=== PATIENT | female | born 1950 | race Caucasian/White ===

== ENCOUNTER 2016-11-16 12:39 | Emergency (ER) | payer MEDICARE, OTHER ==
[2016-11-16 12:46] VITALS: BP 150/80
--- NOTE | 2016-11-16 13:35 | XRAY Preliminary Report ---
Exam: XR Chest 2 View PA/LAT IMPRESSION: No acute abnormality of the chest. [facility] SITE ID: [id number]
--- NOTE | 2016-11-16 13:37 | XRAY Report ---
EXAM: CHEST RADIOGRAPHY EXAM DATE: 11/16/2016 12:51 PM. CLINICAL HISTORY: Asthma exacerbation, right upper back pain. COMPARISON: None. TECHNIQUE: 2 views. FINDINGS: Lungs/Pleura: No focal opacities evident. No pleural effusion. No pneumothorax. Normal volumes. Mediastinum: Heart and mediastinal contours are unremarkable. Other: None. IMPRESSION: No acute abnormality of the chest. [facility] Referring Provider Line: [phone] SITE ID: [id number]
[2016-11-16] MEDS ORDERED: DEXAMETHASONE 10 MG/ML VIAL PO STA (13:47)
--- NOTE | 2016-11-16 13:48 | ED Physician Documentation ---
PD HPI DYSPNEA - Stated complaint Stated Complaint: ASTHMA - Chief complaint Chief Complaint: Resp - History obtained from History obtained from: Patient - History of Present Illness Timing - onset: How many days ago (4) Timing - onset during: Rest Timing - duration: Days (4) Timing - details: Gradual onset, Still present Inciting event(s): URI, Allergic rxn/anaphylaxis Improved by: Inhaler/neb, Steroids Worsened by: Exertion, Coughing, Allergens Associated symptoms: Cough, Wheezing, Chest pain / discomfort. No: Palpitations , Diaphoresis, Bilateral edema, Unilateral edema Similar symptoms before: Diagnosis (asthma with pneumonia and OM) Recently seen: Clinic - Additional information Additional information: 66-year-old female with a history of asthma was seen about 4 weeks ago for an exacerbation of her asthma she was placed on a Z-Owen and a and a 5 day course of prednisone and had some improvement but did not feel like she completely resolved. She went on vacation and when she arrived back home from vacation she began to develop acute nasal congestion and allergy symptoms and she began back on her Flonase and Combivent. She has subsequently developed increasing shortness of breath and has had to use her Combivent inhaler 4-5 times per day and has now developed some pain in her chest as well similar to what she has had previously with exacerbation of asthma. Her pain is on the right side in the back. Review of Systems Constitutional: denies: Fever, Chills Eyes: denies: Decreased vision Ears: denies: Ear pain Nose: reports: Rhinorrhea / runny nose, Congestion Throat: denies: Sore throat Cardiac: reports: Chest pain / pressure. 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 - Present Medications Home Medications: Ambulatory Orders Medication Instructions Recorded Confirmed Lisinopril/Hydrochlorothiazide 1 each PO DAILY 12/20/12 11/16/16 [Lisinopril-Hctz 10-12.5 mg Tab] Cholecalciferol (Vitamin D3) 1 tab PO DAILY 04/11/15 11/16/16 [Vitamin D-3] Fluticasone 44 Mcg [Flovent] 1 inhaler IH BID 04/11/15 11/16/16 Ipratropium/Albuterol [Combivent 1 puffs IH QID 04/11/15 11/16/16 Respimat] Ondansetron HCl [Zofran] 1 tab PO Q6HR 04/11/15 11/16/16 Loratadine [Claritin] 10 mg ORAL DAILY 03/29/16 11/16/16 Amox/Clav 875/125 [Augmentin] 1 each PO Q12H #20 tablet 11/16/16 Mometasone Furoate [Nasonex] 1 spray PO DAILY 11/16/16 11/16/16 predniSONE [Deltasone] 10 mg PO DAILY #26 tablet 11/16/16 - Allergies Allergies/Adverse Reactions: Allergies Allergy/AdvReac Type Severity Reaction Status Date / Time povidone-iodine Allergy Intermediate Hives Verified 03/29/16 16:37 [From Betadine] soap * [From Betadine] Allergy Intermediate Hives Verified 03/29/16 16:37 Sulfa (Sulfonamide Allergy Intermediate Hives Verified 03/29/16 16:37 Antibiotics) Flu vaccine Allergy Mild Rash Uncoded 03/29/16 16:37 - Social History Does the pt smoke?: No Smoking Status: Never smoker Does the pt drink ETOH?: No Does the pt have substance abuse?: No - Immunizations Immunizations are current?: Yes Immunizations: TDAP >10years/unknown PD ED PE NORMAL - Vitals Vital signs reviewed: Yes (hypertensive ) - General General: No acute distress, Well developed/nourished - HEENT HEENT: Atraumatic, PERRL, EOMI, Other (both TM's are erythematous with distortion of the landmarks. ) - Neck Neck: Supple, no meningeal sign, No bony TTP - Cardiac Cardiac: RRR, No murmur - Respiratory Respiratory: No respiratory distress, Other (low pitched rhonchi on the right with fair air movement. ) - Abdomen Abdomen: Soft, Non tender - Back Back: No CVA TTP, No spinal TTP - Derm Derm: Normal color, No rash - Extremities Extremities: No deformity, No edema - Neuro Neuro: Alert and oriented X 3, No motor deficit, No sensory deficit, Normal speech - Psych Psych: Normal mood, Normal affect Results - Vitals Vitals: Vital Signs - 24 hr 11/16/16 12:43 Temperature 36.6 C Heart Rate 77 Respiratory 20 Rate Blood Pressure 150/80 H O2 Saturation 98 Oxygen O2 Source Room air - Rads (name of study) 2 view chest Radiology: Prelim report reviewed (IMPRESSION: No acute abnormality of the chest ), EMP read indepedently, See rad report PD MEDICAL DECISION MAKING - ED course Complexity details: reviewed old records, reviewed results, re-evaluated patient , considered differential, d/w patient ED course: 66-year-old female with a history of asthma does not have acute wheezing here in the emergency department she does have some chest wall pain and her chest x- ray is without evidence of infiltrate. She does have bilateral otitis media on examination of the TMs and here in the emergency department she is given a dose of dexamethasone and we will put her on some Augmentin as well as a 8 day course of prednisone and a rapid taper Departure - Departure Disposition: 01 Home, Self Care Clinical Impression: Asthma exacerbation Otitis media Qualifiers: Otitis media type: suppurative Laterality: bilateral Chronicity: acute Recurrence: not specified as recurrent Spontaneous tympanic membrane rupture: without spontaneous rupture Qualified Code(s): H66.003 - Acute suppurative otitis media without spontaneous rupture of ear drum, bilateral Condition: Stable Instructions: ED Reactive Airway Disease, ED Otitis Media Acute Adult Follow-Up: Melvin Coronel MD [Primary Care Provider] - Prescriptions: Amox/Clav 875/125 [Augmentin] 1 each PO Q12H #20 tablet predniSONE [Deltasone] 10 mg PO DAILY #26 tablet
[2016-11-16] MEDS ORDERED: CHERRY SYRUP 10 ML UDC PO ONE (13:50)
[2016-11-16] MEDS ORDERED: DEXAMETHASONE 10 MG/ML VIAL ONE (13:50)
== END 2016-11-16 14:10 | disposition home or self-care (01) ==
LOC: ED 12:39
DX: J45.901 Unspecified asthma with (acute) exacerbation (principal); H66.003 Acute suppurative otitis media without spontaneous rupture of ear drum, bilateral; I10 Essential (primary) hypertension; K21.9 Gastro-esophageal reflux disease without esophagitis
CPT/HCPCS: 71020; 99283; A9270

== ENCOUNTER 2018-03-13 16:46 | Emergency (ER) | payer MEDICARE, OTHER ==
[2018-03-13 17:41] LABS: BASOPHILS # (AUTO) 0.2 10^3/uL (0.0-0.1); BASOPHILS % (AUTO) 1.8 %; EOSINOPHILS # (AUTO) 0.2 10^3/uL (0.0-0.7); EOSINOPHILS % (AUTO) 2.3 %; HGB - HEMOGLOBIN 14.6 g/dL (12.0-16.0); LYMPHOCYTES # (AUTO) 3.9 10^3/uL (1.5-3.5); LYMPHOCYTES % (AUTO) 39.3 %; MEAN CORPUSCULAR HEMOGLOBIN 29.6 pg (27.0-31.0); MEAN CORPUSCULAR HGB CONC 33.4 g/dL (32.0-36.0); MEAN CORPUSCULAR VOLUME 88.5 fL (81.0-99.0); MEAN PLATELET VOLUME 7.7 fL (7.9-10.8); MONOCYTES # (AUTO) 0.9 10^3/uL (0.0-1.0); MONOCYTES % (AUTO) 8.5 %; NEUTROPHILS # (AUTO) 4.8 10^3/uL (1.5-6.6); NEUTROPHILS % (AUTO) 48.1 %; PLT - PLATELET COUNT 208 10^3/uL (130-450); RED BLOOD COUNT 4.94 10^6/uL (4.20-5.40); RED CELL DISTRIBUTION WIDTH 14.7 % (12.0-15.0); WHITE BLOOD COUNT 9.9 x10^3/uL (4.8-10.8)
--- NOTE | 2018-03-13 17:50 | XRAY Report ---
Reason: LUQ pain through to back Procedure Date: 03/13/2018 Accession Number: [id number] / [id number] Procedure: XR - Chest 1 View X-Ray CPT Code: 08779 FULL RESULT: EXAM: CHEST RADIOGRAPHY EXAM DATE: 03/13/2018 05:30 PM. CLINICAL HISTORY: LUQ pain through to back. COMPARISON: 11/16/2016. TECHNIQUE: 1 view. FINDINGS: Lungs/Pleura: No focal opacities evident. No pleural effusion. No pneumothorax. Mediastinum: Within exam limitations, the cardiomediastinal contour is normal. Other: None. IMPRESSION: Grossly clear. [facility]
[2018-03-13 17:55] LABS: ALBUMIN 4.3 g/dL (3.2-5.5); ALBUMIN/GLOBULIN RATIO 1.4 (1.0-2.2); BILIRUBIN,TOTAL 0.6 mg/dL (0.2-1.0); CALCIUM 9.5 mg/dL (8.5-10.3); CREATININE 0.9 mg/dL (0.4-1.0); TOTAL PROTEIN 7.3 g/dL (6.7-8.2)
[2018-03-13] MEDS ORDERED: SUCRALFATE 1 GM/10 ML UDC PO STA (18:16)
[2018-03-13] MEDS ORDERED: LIDOCAINE VISCOUS 2% 15 ML UDC MM STA (18:16)
[2018-03-13] MEDS ORDERED: FAMOTIDINE 20 MG TABLET PO STA (18:16)
--- NOTE | 2018-03-13 18:18 | ED Physician Documentation ---
PD HPI ABD PAIN - Stated complaint Stated Complaint: LUQ/BACK PX - Chief complaint Chief Complaint: Abd Pain - History obtained from History obtained from: Patient - History of Present Illness Timing - onset: How many weeks ago (1) Timing - duration: Weeks (1) Timing - details: Gradual onset Pain level max: 7 Pain level now: 4 Quality: Aching, Pain Location: LUQ Radiation: Other (mid back) Improved by: Other (nothing) Worsened by: Eating Associated symptoms: No: Fever, Hematemesis, Diarrhea, Constipation, Melena, Hematochezia, Dysuria, Hematuria Similar symptoms before: Has not had sx before Recently seen: Not recently seen Review of Systems Constitutional: denies: Fever, Chills : denies: Dysuria Skin: denies: Rash Musculoskeletal: denies: Neck pain, Back pain Neurologic: denies: Headache PD PAST MEDICAL HISTORY - Past Medical History Cardiovascular: Hypertension Respiratory: Asthma GI: GERD, Diverticulitis Musculoskeletal: Chronic back pain Derm: None - Past Surgical History Past Surgical History: Yes General: 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, 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, 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 - Present Medications Home Medications: Ambulatory Orders Medication Instructions Recorded Confirmed Lisinopril/Hydrochlorothiazide 1 each PO DAILY 12/20/12 11/16/16 [Lisinopril-Hctz 10-12.5 mg Tab] Cholecalciferol (Vitamin D3) 1 tab PO DAILY 04/11/15 11/16/16 [Vitamin D-3] Fluticasone 44 Mcg [Flovent] 1 inhaler IH BID 04/11/15 11/16/16 Ipratropium/Albuterol [Combivent 1 puffs IH QID 04/11/15 11/16/16 Respimat] Ondansetron HCl [Zofran] 1 tab PO Q6HR 04/11/15 11/16/16 Loratadine [Claritin] 10 mg ORAL DAILY 03/29/16 11/16/16 Azelastine HCl 03/13/18 03/13/18 Cyclobenzaprine [Flexeril] 03/13/18 Famotidine [Pepcid] 20 mg PO BID #60 tablet 03/13/18 Metoprolol Tartrate 03/13/18 Omeprazole 20 mg PO DAILY #30 tab. 03/13/18 Ondansetron Odt [Zofran] 4 mg TL Q6H PRN #10 tablet 03/13/18 Rivaroxaban [Xarelto] 03/13/18 - Allergies Allergies/Adverse Reactions: Allergies Allergy/AdvReac Type Severity Reaction Status Date / Time povidone-iodine Allergy Intermediate Hives Verified 03/13/18 17:02 [From Betadine] soap * [From Betadine] Allergy Intermediate Hives Verified 03/13/18 17:02 Sulfa (Sulfonamide Allergy Intermediate Hives Verified 03/13/18 17:02 Antibiotics) Flu vaccine Allergy Mild Rash Uncoded 03/13/18 17:02 - Social History Does the pt smoke?: No Smoking Status: Never smoker Does the pt drink ETOH?: No Does the pt have substance abuse?: No - Immunizations Immunizations are current?: Yes Immunizations: TDAP >10years/unknown PD ED PE NORMAL - Vitals Vital signs reviewed: Yes - General General: Alert and oriented X 3, No acute distress, Well developed/nourished - HEENT HEENT: PERRL, Moist mucous membranes - Neck Neck: Supple, no meningeal sign - Cardiac Cardiac: RRR, Strong equal pulses - Respiratory Respiratory: No respiratory distress, Clear bilaterally - Abdomen Abdomen: Soft, Non distended, Other (Mild tenderness palpation epigastric without peritoneal signs) - Back Back: No spinal TTP - Derm Derm: Warm and dry - Neuro Neuro: Alert and oriented X 3 - Psych Psych: Normal mood, Normal affect Results - Vitals Vitals: Vital Signs - 24 hr 03/13/18 03/13/18 16:59 18:52 Temperature 37.1 C 36.8 C Heart Rate 74 69 Respiratory 18 16 Rate Blood Pressure 146/72 H 135/62 H O2 Saturation 97 98 Oxygen O2 Source Room air - Labs Labs: Laboratory Tests 03/13/18 03/13/18 03/13/18 17:37 17:37 17:37 WBC 9.9 RBC 4.94 Hgb 14.6 Hct 43.7 MCV 88.5 MCH 29.6 MCHC 33.4 RDW 14.7 Plt Count 208 MPV 7.7 L Neut # (Auto) 4.8 Lymph # (Auto) 3.9 H [place] # (Auto) 0.9 Eos # (Auto) 0.2 Baso # (Auto) 0.2 H Absolute Nucleated RBC 0.01 Nucleated RBC % 0.1 Sodium 136 Potassium 4.2 Chloride 101 Carbon Dioxide 29 Anion Gap 6.0 BUN 12 Creatinine 0.9 Estimated GFR (MDRD) 62 L Glucose 93 Calcium 9.5 Total Bilirubin 0.6 AST 47 H ALT 74 H Alkaline Phosphatase 59 Troponin I < 0.04 Total Protein 7.3 Albumin 4.3 Globulin 3.0 Albumin/Globulin Ratio 1.4 Lipase 51 - Rads (name of study) cxr Radiology: Prelim report reviewed, EMP read contemporaneously, See rad report (normal) PD MEDICAL DECISION MAKING - ED course Complexity details: reviewed results, re-evaluated patient, considered differential, d/w patient ED course: Patient is a 67-year-old female with left upper quadrant abdominal pain. No significant abdominal tenderness on exam, does have mild epigastric tenderness. No acute laboratory findings to explain her pain. She feels better after GI cocktail. Will treat for gastritis. She is well-appearing, nontoxic. Tolerating p.o. without difficulty. Patient counseled regarding signs and symptoms for which I believe and urgent re-evaluation would be necessary. Patient with good understanding of and agreement to plan and is comfortable going home at this time This document was made in part using voice recognition software. While efforts are made to proofread this document, sound alike and grammatical errors may occur. Departure - Departure Disposition: 01 Home, Self Care Clinical Impression: Gastritis Qualifiers: Gastritis type: unspecified gastritis Chronicity: acute Gastritis bleeding: without bleeding Qualified Code(s): K29.00 - Acute gastritis without bleeding Condition: Good Instructions: ED PUD Vs Gastritis Follow-Up: BREA MARINA DO [Primary Care Provider] - Within 1 week Prescriptions: Famotidine [Pepcid] 20 mg PO BID #60 tablet Omeprazole 20 mg PO DAILY #30 tab.rap. Ondansetron Odt [Zofran] 4 mg TL Q6H PRN #10 tablet PRN Reason: Nausea / Vomiting Comments: Use the medications as prescribed. Return if you worsen. Follow-up with your doctor for further care. Discharge Date/Time: 03/13/18 19:22
[2018-03-13 18:52] VITALS: BP 135/62
== END 2018-03-13 19:22 | disposition home or self-care (01) ==
LOC: ED 16:46
DX: K29.00 Acute gastritis without bleeding (principal); I10 Essential (primary) hypertension
CPT/HCPCS: 36415; 71045; 80053; 83690; 84484; 85025; 93005; 99283; A9270

== ENCOUNTER 2018-10-21 19:23 | Emergency (ER) | payer MEDICARE, OTHER ==
[2018-10-21 19:53] LABS: BILIRUBIN,URINE NEGATIVE (NEGATIVE); GLUCOSE, URINE (UA) NEGATIVE (NEGATIVE); KETONES,URINE (UA) NEGATIVE (NEGATIVE); LEUKOCYTE ESTERASE, URINE NEGATIVE (NEGATIVE); NITRITE,URINE NEGATIVE (NEGATIVE); OCCULT BLOOD,URINE NEGATIVE (NEGATIVE); PROTEIN,URINE NEGATIVE (NEGATIVE); UROBILINOGEN,URINE 0.2 (NORMAL) E.U./dL (NORMAL)
[2018-10-21 19:54] LABS: CLARITY,URINE CLEAR (CLEAR)
[2018-10-21 20:11] LABS: BASOPHILS # (AUTO) 0.1 10^3/uL (0.0-0.1); BASOPHILS % (AUTO) 0.6 %; EOSINOPHILS # (AUTO) 0.2 10^3/uL (0.0-0.7); EOSINOPHILS % (AUTO) 1.5 %; HGB - HEMOGLOBIN 15.1 g/dL (12.0-16.0); LYMPHOCYTES # (AUTO) 3.7 10^3/uL (1.5-3.5); LYMPHOCYTES % (AUTO) 34.9 %; MEAN CORPUSCULAR HGB CONC 32.3 g/dL (32.0-36.0); MEAN CORPUSCULAR VOLUME 89.6 fL (81.0-99.0); MEAN PLATELET VOLUME 9.8 fL (7.9-10.8); MONOCYTES # (AUTO) 0.9 10^3/uL (0.0-1.0); MONOCYTES % (AUTO) 8.7 %; NEUTROPHILS # (AUTO) 5.7 10^3/uL (1.5-6.6); NEUTROPHILS % (AUTO) 53.6 %; PLT - PLATELET COUNT 208 10^3/uL (130-450); RED BLOOD COUNT 5.21 10^6/uL (4.20-5.40); RED CELL DISTRIBUTION WIDTH 13.8 % (12.0-15.0); WHITE BLOOD COUNT 10.6 x10^3/uL (4.8-10.8)
--- NOTE | 2018-10-21 20:14 | ED Physician Documentation ---
PD HPI ABD PAIN - Stated complaint Stated Complaint: ABD PX/NAUSEA - Chief complaint Chief Complaint: Abd Pain - History obtained from History obtained from: Patient - History of Present Illness Timing - onset: How many days ago (2) Timing - details: Gradual onset, Waxing and waning Pain level now: 9 Location: Suprapubic, LLQ Radiation: Other (no radiation) Improved by: Other (no ameliorating factors) Worsened by: Other (worse in proportion to how full her bladder is) Associated symptoms: Constipation. No: Fever, Nausea, Vomiting, Diarrhea Similar symptoms before: Has not had sx before Recently seen: Not recently seen - Additional information Additional information: c/o 2 days gradual onset and progressive lower abdominal pain. also feels constipated, no relief with miralax. Review of Systems Constitutional: denies: Fever, Chills, Sweats Cardiac: reports: Reviewed and negative Respiratory: reports: Reviewed and negative GI: reports: Abdominal Pain, Constipation. 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 - Present Medications Home Medications: Ambulatory Orders Medication Instructions Recorded Confirmed Lisinopril/Hydrochlorothiazide 1 each PO DAILY 12/20/12 11/16/16 [Lisinopril-Hctz 10-12.5 mg Tab] Cholecalciferol (Vitamin D3) 1 tab PO DAILY 04/11/15 11/16/16 [Vitamin D-3] Fluticasone 44 Mcg [Flovent] 1 inhaler IH BID 04/11/15 11/16/16 Ipratropium/Albuterol [Combivent 1 puffs IH QID 04/11/15 11/16/16 Respimat] Ondansetron HCl [Zofran] 1 tab PO Q6HR 04/11/15 11/16/16 Loratadine [Claritin] 10 mg ORAL DAILY 03/29/16 11/16/16 Azelastine HCl 03/13/18 03/13/18 Cyclobenzaprine [Flexeril] 03/13/18 Famotidine [Pepcid] 20 mg PO BID #60 tablet 03/13/18 Metoprolol Tartrate 03/13/18 Omeprazole 20 mg PO DAILY #30 tab 03/13/18 Ondansetron Odt [Zofran] 4 mg TL Q6H PRN #10 tablet 03/13/18 Rivaroxaban [Xarelto] 03/13/18 Amox/Clav 875/125 [Augmentin] 1 each PO Q12H #13 tablet 10/21/18 Hydrocodone/Acetaminophen 1 - 2 each PO Q6H PRN #14 tablet 10/21/18 [Hydrocodon-Acetaminophen 5-325] - Allergies Allergies/Adverse Reactions: Allergies Allergy/AdvReac Type Severity Reaction Status Date / Time povidone-iodine Allergy Intermediate Hives Verified 10/21/18 19:30 [From Betadine] soap * [From Betadine] Allergy Intermediate Hives Verified 10/21/18 19:30 Sulfa (Sulfonamide Allergy Intermediate Hives Verified 10/21/18 19:30 Antibiotics) Flu vaccine Allergy Mild Rash Uncoded 10/21/18 19:30 - Social History Does the pt smoke?: No Smoking Status: Never smoker Does the pt drink ETOH?: No Does the pt have substance abuse?: No - Immunizations Immunizations are current?: Yes Immunizations: TDAP >10years/unknown PD ED PE NORMAL - Vitals Vital signs reviewed: Yes - General General: Alert and oriented X 3, No acute distress, Well developed/nourished - HEENT HEENT: Moist mucous membranes - Cardiac Cardiac: RRR, No murmur - Respiratory Respiratory: No respiratory distress, Clear bilaterally - Abdomen Abdomen: Soft, Non distended, Other (mild tenderness LLQ and suprapubic region without guarding or rebound) - Back Back: No CVA TTP - Derm Derm: Normal color, Warm and dry, No rash - Extremities Extremities: No edema Results - Vitals Vitals: Vital Signs - 24 hr 10/21/18 10/21/18 19:26 22:28 Temperature 37 C 36.3 C L Heart Rate 99 83 Respiratory 17 18 Rate Blood Pressure 126/64 136/62 H O2 Saturation 96 95 Oxygen O2 Source Room air - Labs Labs: Laboratory Tests 10/21/18 10/21/18 10/21/18 19:35 19:35 19:35 WBC 10.6 RBC 5.21 Hgb 15.1 Hct 46.7 MCV 89.6 MCH 29.0 MCHC 32.3 RDW 13.8 Plt Count 208 MPV 9.8 Neut # (Auto) 5.7 Lymph # (Auto) 3.7 H [place] # (Auto) 0.9 Eos # (Auto) 0.2 Baso # (Auto) 0.1 Absolute Nucleated RBC 0.00 Nucleated RBC % 0.0 Sodium 136 Potassium 4.2 Chloride 100 L Carbon Dioxide 27 Anion Gap 9.0 BUN 11 Creatinine 1.0 Estimated GFR (MDRD) 55 L Glucose 111 H Calcium 9.8 Total Bilirubin 0.8 AST 41 ALT 55 Alkaline Phosphatase 48 Total Protein 7.9 Albumin 4.4 Globulin 3.5 Albumin/Globulin Ratio 1.3 Lipase 54 H Urine Color YELLOW Urine Clarity CLEAR Urine pH 7.0 Ur Specific [place] <=1.005 Urine Protein NEGATIVE Urine Glucose (UA) NEGATIVE Urine Ketones NEGATIVE Urine Occult Blood NEGATIVE Urine Nitrite NEGATIVE Urine Bilirubin NEGATIVE Urine Urobilinogen 0.2 (NORMAL) Ur Leukocyte Esterase NEGATIVE Ur Microscopic Review NOT INDICATED Urine Culture Comments NOT INDICATED - Rads (name of study) CT A/P Radiology: Prelim report reviewed, See rad report PD MEDICAL DECISION MAKING - ED course Complexity details: reviewed old records, reviewed results, re-evaluated patient, considered differential, d/w patient Departure - Departure Disposition: 01 Home, Self Care Clinical Impression: Diverticulitis Condition: Good Health Concerns: abdominal pain Plan of Treatment: antibiotics, follow up with primary care provider Care Goals: pain control, improvement/resolution of symptoms Assessment: see diagnosis Instructions: ED Diverticulitis Follow-Up: BREA MARINA DO [Primary Care Provider] - Prescriptions: Amox/Clav 875/125 [Augmentin] 1 each PO Q12H #13 tablet Hydrocodone/Acetaminophen [Hydrocodon-Acetaminophen 5-325] 1 - 2 each PO Q6H PRN #14 tablet PRN Reason: pain Forms: Activity restrictions Discharge Date/Time: 10/21/18 22:28
[2018-10-21 20:34] LABS: ALBUMIN 4.4 g/dL (3.2-5.5); ALBUMIN/GLOBULIN RATIO 1.3 (1.0-2.2); BILIRUBIN,TOTAL 0.8 mg/dL (0.2-1.0); CALCIUM 9.8 mg/dL (8.5-10.3); TOTAL PROTEIN 7.9 g/dL (6.7-8.2)
[2018-10-21] MEDS ORDERED: MORPHINE 2 MG/ML CARPUJECT IVP STA (20:38)
--- NOTE | 2018-10-21 21:25 | CT Report ---
Reason: lower abdominal pain Procedure Date: 10/21/2018 Accession Number: [id number] / [id number] Procedure: CT - Abdomen/Pelvis WO CPT Code: FULL RESULT: EXAM: CT ABDOMEN AND PELVIS EXAM DATE: 10/21/2018 08:58 PM. CLINICAL HISTORY: Lower abdominal pain. COMPARISONS: ABDOMEN/PELVIS W/O 01/29/2014 2:29 PM. TECHNIQUE: Routine helical CT imaging was performed through the abdomen and pelvis. IV contrast: . Enteric contrast: No. Reconstructions: Coronal and sagittal. In accordance with CT protocol optimization, one or more of the following dose reduction techniques were utilized for this exam: automated exposure control, adjustment of mA and/or KV based on patient size, or use of iterative reconstructive technique. FINDINGS: Lung Bases: Unremarkable. Small hiatal hernia Liver: Fatty infiltrated Gallbladder/Bile Ducts: Post cholecystectomy Spleen: Normal. Pancreas: Normal. Adrenal Glands: Normal. Kidneys: Right kidney extrarenal pelvis. Possible distal right ureteral 2 mm calcification at L5. Left kidney extrarenal pelvis Peritoneal Cavity/Bowel: Diverticulosis There may be some mild perisigmoid stranding. No retroperitoneal adenopathy. Appendix not identified but no pericecal inflammatory changes Pelvic Organs: Calcification within or adjacent to the left ovary stable.. The bladder and visualized pelvic organs are otherwise within normal limits. Vasculature: Atherosclerotic changes Bones: DJD spine Other: None. IMPRESSION: 1. Possibly mild sigmoid diverticulitis. 2. Possible distal right ureteral 2 mm calcification without hydronephrosis. 3. Fatty infiltrated liver. [facility]
[2018-10-21] MEDS ORDERED: HYDROcod/ACET 5/325 Prepack 4 PO STA (22:11)
[2018-10-21] MEDS ORDERED: AMOX/CLAV 875 MG/125 MG TABLET PO STA (22:11)
[2018-10-21 22:28] VITALS: BP 136/62
== END 2018-10-21 22:28 | disposition home or self-care (01) ==
LOC: ED 19:23
DX: K57.32 Diverticulitis of large intestine without perforation or abscess without bleeding (principal); K59.00 Constipation, unspecified; K21.9 Gastro-esophageal reflux disease without esophagitis; I10 Essential (primary) hypertension; Z79.899 Other long term (current) drug therapy
CPT/HCPCS: 36415; 74176; 80053; 81003; 83690; 85025; 96374; 99283; 99284; A9270; 81001; 87086

== ENCOUNTER 2018-10-24 11:29 | Emergency (ER) | payer MEDICARE, OTHER ==
[2018-10-24] MEDS ORDERED: LIDOCAINE-MPF 2% 7 ML in SODIUM CHLORIDE 0.9% 50 ML IV STA (12:22)
[2018-10-24] MEDS ORDERED: PROMETHAZINE INJ 25 MG in SODIUM CHLORIDE 0.9% 50 ML IV STA (12:23)
[2018-10-24 12:25] LABS: BASOPHILS # (AUTO) 0.1 10^3/uL (0.0-0.1); BASOPHILS % (AUTO) 0.6 %; EOSINOPHILS # (AUTO) 0.2 10^3/uL (0.0-0.7); EOSINOPHILS % (AUTO) 1.3 %; HGB - HEMOGLOBIN 15.4 g/dL (12.0-16.0); LYMPHOCYTES # (AUTO) 3.3 10^3/uL (1.5-3.5); LYMPHOCYTES % (AUTO) 24.4 %; MEAN CORPUSCULAR HEMOGLOBIN 28.7 pg (27.0-31.0); MEAN CORPUSCULAR HGB CONC 32.4 g/dL (32.0-36.0); MEAN CORPUSCULAR VOLUME 88.6 fL (81.0-99.0); MEAN PLATELET VOLUME 10.4 fL (7.9-10.8); MONOCYTES % (AUTO) 7.6 %; NEUTROPHILS # (AUTO) 8.7 10^3/uL (1.5-6.6); NEUTROPHILS % (AUTO) 65.4 %; PLT - PLATELET COUNT 229 10^3/uL (130-450); RED BLOOD COUNT 5.37 10^6/uL (4.20-5.40); RED CELL DISTRIBUTION WIDTH 13.4 % (12.0-15.0); WHITE BLOOD COUNT 13.4 x10^3/uL (4.8-10.8)
[2018-10-24 12:27] LABS: BILIRUBIN,URINE NEGATIVE (NEGATIVE); GLUCOSE, URINE (UA) NEGATIVE (NEGATIVE); KETONES,URINE (UA) NEGATIVE (NEGATIVE); LEUKOCYTE ESTERASE, URINE NEGATIVE (NEGATIVE); NITRITE,URINE NEGATIVE (NEGATIVE); OCCULT BLOOD,URINE NEGATIVE (NEGATIVE); PROTEIN,URINE NEGATIVE (NEGATIVE); UROBILINOGEN,URINE 0.2 (NORMAL) E.U./dL (NORMAL)
[2018-10-24 12:29] LABS: CLARITY,URINE CLEAR (CLEAR)
[2018-10-24 12:38] LABS: ALBUMIN 4.3 g/dL (3.2-5.5); ALBUMIN/GLOBULIN RATIO 1.1 (1.0-2.2); BILIRUBIN,TOTAL 0.6 mg/dL (0.2-1.0); CALCIUM 9.5 mg/dL (8.5-10.3); CREATININE 0.9 mg/dL (0.4-1.0); TOTAL PROTEIN 8.1 g/dL (6.7-8.2)
[2018-10-24] MEDS ORDERED: oxyCODONE 5 MG TABLET PO STA (13:35)
[2018-10-24] MEDS ORDERED: AMPICILLIN/SULBACTAM 3 GM in SODIUM CHLORIDE 0.9% MINIBAG 100 ML IV STA (13:36)
--- NOTE | 2018-10-24 13:39 | ED Physician Documentation ---
History of Present Illness - Stated complaint Stated Complaint: ABD PX - Chief complaint Chief Complaint: Abd Pain - History obtained from History obtained from: Patient, Family - History of Present Illness Timing: How many days ago (4) Pain level max: 5 Pain level now: 3 - Additonal information Additional information: 68-year-old female recently seen here and diagnosed with a possible right-sided ureteral stone as well as mild sigmoid diverticulitis. She states that she is having increasing pain. No fevers. Some nausea but no vomiting. She states she has chronic nausea that is currently unchanged. She did not take anything for pain today. She did take 2 Vicodin over the course of the entire day ye . Worse with movement and better with rest. 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: Tubal ligation, 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 - Present Medications Home Medications: Ambulatory Orders Medication Instructions Recorded Confirmed Lisinopril/Hydrochlorothiazide 1 each PO DAILY 12/20/12 11/16/16 [Lisinopril-Hctz 10-12.5 mg Tab] Cholecalciferol (Vitamin D3) 1 tab PO DAILY 04/11/15 11/16/16 [Vitamin D-3] Fluticasone 44 Mcg [Flovent] 1 inhaler IH BID 04/11/15 11/16/16 Ipratropium/Albuterol [Combivent 1 puffs IH QID 04/11/15 11/16/16 Respimat] Ondansetron HCl [Zofran] 1 tab PO Q6HR 04/11/15 11/16/16 Loratadine [Claritin] 10 mg ORAL DAILY 03/29/16 11/16/16 Azelastine HCl 03/13/18 03/13/18 Cyclobenzaprine [Flexeril] 03/13/18 Famotidine [Pepcid] 20 mg PO BID #60 tablet 03/13/18 Metoprolol Tartrate 03/13/18 Omeprazole 20 mg PO DAILY #30 tab 03/13/18 Ondansetron Odt [Zofran] 4 mg TL Q6H PRN #10 tablet 03/13/18 Rivaroxaban [Xarelto] 03/13/18 Amox/Clav 875/125 [Augmentin] 1 each PO Q12H #13 tablet 10/21/18 Hydrocodone/Acetaminophen 1 - 2 each PO Q6H PRN #14 tablet 10/21/18 [Hydrocodon-Acetaminophen 5-325] Amox/Clav 875/125 [Augmentin] 1 each PO Q8H #30 tablet 10/24/18 Oxycodone HCl/Acetaminophen 1 - 2 each PO Q6H PRN #14 tablet 10/24/18 [Percocet 5-325 mg Tablet] Promethazine [Phenergan] 25 mg PO Q6H PRN #10 tab 10/24/18 - Allergies Allergies/Adverse Reactions: Allergies Allergy/AdvReac Type Severity Reaction Status Date / Time povidone-iodine Allergy Intermediate Hives Verified 10/21/18 19:30 [From Betadine] soap * [From Betadine] Allergy Intermediate Hives Verified 10/21/18 19:30 Sulfa (Sulfonamide Allergy Intermediate Hives Verified 10/21/18 19:30 Antibiotics) Flu vaccine Allergy Mild Rash Uncoded 10/21/18 19:30 - Social History Does the pt smoke?: No Smoking Status: Never smoker Does the pt drink ETOH?: No Does the pt have substance abuse?: No - Immunizations Immunizations are current?: Yes Immunizations: TDAP >10years/unknown PD ED PE NORMAL - Vitals Vital signs reviewed: Yes - General General: Alert and oriented X 3, No acute distress, Well developed/nourished - HEENT HEENT: Moist mucous membranes - Neck Neck: Supple, no meningeal sign - Cardiac Cardiac: RRR, No murmur - Respiratory Respiratory: No respiratory distress, Clear bilaterally - Abdomen Abdomen: Soft, Non distended, Other (Tender to palpation suprapubic and left lower quadrant. No peritoneal signs) - Back Back: No CVA TTP - Derm Derm: Warm and dry - Extremities Extremities: No edema, No calf tenderness / cord - Neuro Neuro: Alert and oriented X 3 - Psych Psych: Normal mood, Normal affect Results - Vitals Vitals: Vital Signs - 24 hr 10/24/18 10/24/18 10/24/18 11:36 13:14 14:33 Temperature 37.0 C Heart Rate 88 81 79 Respiratory 16 16 16 Rate Blood Pressure 140/63 H 131/60 H 122/57 L O2 Saturation 97 94 93 Oxygen O2 Source Room air - Labs Labs: Laboratory Tests 10/24/18 10/24/18 10/24/18 12:20 12:20 12:20 WBC 13.4 H RBC 5.37 Hgb 15.4 Hct 47.6 H MCV 88.6 MCH 28.7 MCHC 32.4 RDW 13.4 Plt Count 229 MPV 10.4 Neut # (Auto) 8.7 H Lymph # (Auto) 3.3 [place] # (Auto) 1.0 Eos # (Auto) 0.2 Baso # (Auto) 0.1 Absolute Nucleated RBC 0.00 Nucleated RBC % 0.0 Sodium 132 L Potassium 4.1 Chloride 98 L Carbon Dioxide 23 Anion Gap 11.0 BUN 10 Creatinine 0.9 Estimated GFR (MDRD) 62 L Glucose 109 H Calcium 9.5 Total Bilirubin 0.6 AST 50 H ALT 83 H Alkaline Phosphatase 64 Total Protein 8.1 Albumin 4.3 Globulin 3.8 Albumin/Globulin Ratio 1.1 Lipase 61 H Urine Color YELLOW Urine Clarity CLEAR Urine pH 6.0 Ur Specific [place] 1.010 Urine Protein NEGATIVE Urine Glucose (UA) NEGATIVE Urine Ketones NEGATIVE Urine Occult Blood NEGATIVE Urine Nitrite NEGATIVE Urine Bilirubin NEGATIVE Urine Urobilinogen 0.2 (NORMAL) Ur Leukocyte Esterase NEGATIVE Ur Microscopic Review NOT INDICATED Urine Culture Comments NOT INDICATED PD MEDICAL DECISION MAKING - ED course Complexity details: reviewed old records, reviewed results, re-evaluated pacheco mcnair, considered differential, d/w patient, d/w family ED course: CT scan 3 days ago showed mild sigmoid diverticulitis and possible 2 mm ureteral stone. Pain is well controlled here. Mild increase in her leukocytosis, but no peritoneal signs on exam. Will not repeat CT today. We will increase her Augmentin 2-3 times a day. She will return if she worsens including fevers, worsening abdominal pain or failure to improve in the next 24 to 48 hours. Patient counseled regarding signs and symptoms for which I believe and urgent re-evaluation would be necessary. Patient with good understanding of and agreement to plan and is comfortable going home at this time This document was made in part using voice recognition software. While efforts are made to proofread this document, sound alike and grammatical errors may occur. Departure - Departure Disposition: 01 Home, Self Care Clinical Impression: Diverticulitis Condition: Good Instructions: ED Diverticulitis Follow-Up: BREA MARINA DO [Primary Care Provider] - Within 3 Days Prescriptions: Amox/Clav 875/125 [Augmentin] 1 each PO Q8H #30 tablet Oxycodone HCl/Acetaminophen [Percocet 5-325 mg Tablet] 1 - 2 each PO Q6H PRN #14 tablet PRN Reason: pain Promethazine [Phenergan] 25 mg PO Q6H PRN #10 tab PRN Reason: Nausea / Vomiting Comments: We will increased the augmentin to 3x per day and change your pain medication. Return if you worsen. Forms: Activity restrictions Discharge Date/Time: 10/24/18 14:48
[2018-10-24] MEDS ORDERED: AMPICILLIN/SULBACTAM 3 GM in SODIUM CHLORIDE 0.9% MINIBAG 100 ML IV SCH (14:00)
[2018-10-24 14:34] VITALS: BP 122/57
== END 2018-10-24 14:48 | disposition home or self-care (01) ==
LOC: ED 11:29
DX: K57.32 Diverticulitis of large intestine without perforation or abscess without bleeding (principal); Z87.442 Personal history of urinary calculi; I10 Essential (primary) hypertension; Z79.01 Long term (current) use of anticoagulants
CPT/HCPCS: 36415; 80053; 81003; 83690; 85025; 96365; 96367; 96368; 99283; 99284; A9270; J7040; 81001; 87086

== ENCOUNTER 2018-10-28 21:30 | Outpatient (CLI) | payer MEDICARE, OTHER | END 2018-10-28 21:31 | disposition critical access hospital (66) | LOC: EMS 21:30 | PROVIDERS: ATTEND Surgery | DX: R00.0 Tachycardia, unspecified (principal) | CPT/HCPCS: A0425; A0427 ==

== ENCOUNTER 2018-10-28 21:48 | Emergency (ER) | payer MEDICARE, OTHER ==
--- NOTE | 2018-10-28 21:59 | ED Physician Documentation ---
PD HPI CHEST PAIN - Stated complaint Stated Complaint: CP/SVT - Chief complaint Chief Complaint: Cardiac - History obtained from History obtained from: Patient - History of Present Illness Timing - onset: Enter time (20:30) Timing - onset during: Rest Timing - duration: Minutes Timing - details: Abrupt onset, Constant, Still present in ED (improved after adenosine given by medics) Pain level max: 0 Pain level now: 0 Quality: Pain Location: Substernal Radiation: No: Jaw, Neck, Back, Abdominal, Left upper extremity, Right upper extremity Improved by: Nothing Worsened by: Exertion Associated symptoms: Diaphoresis Recently seen: Not recently seen - Additional information Additional information: patient complains of sudden onset rapid palpitations with diaphoresis and bilateral upper extremity pain at 8:30 tonight while seated at home. Medics arri tonio and found patient to be tachycardic with heart rate of 220s to 240s. Medics administered IV adenosine for SVT, and patient reportedly converted to normal sinus rhythm. En route to ED, patient went into rapid a fib Review of Systems Constitutional: reports: Reviewed and negative Cardiac: reports: Chest pain / pressure (resolved after adenosine en route), Palpitations. 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 - Present Medications Home Medications: Ambulatory Orders Medication Instructions Recorded Confirmed Lisinopril/Hydrochlorothiazide 1 each PO DAILY 12/20/12 11/16/16 [Lisinopril-Hctz 10-12.5 mg Tab] Cholecalciferol (Vitamin D3) 1 tab PO DAILY 04/11/15 11/16/16 [Vitamin D-3] Fluticasone 44 Mcg [Flovent] 1 inhaler IH BID 04/11/15 11/16/16 Ipratropium/Albuterol [Combivent 1 puffs IH QID 04/11/15 11/16/16 Respimat] Ondansetron HCl [Zofran] 1 tab PO Q6HR 04/11/15 11/16/16 Loratadine [Claritin] 10 mg ORAL DAILY 03/29/16 11/16/16 Azelastine HCl 03/13/18 03/13/18 Cyclobenzaprine [Flexeril] 03/13/18 Famotidine [Pepcid] 20 mg PO BID #60 tablet 03/13/18 Metoprolol Tartrate 03/13/18 Omeprazole 20 mg PO DAILY #30 tab 03/13/18 Ondansetron Odt [Zofran] 4 mg TL Q6H PRN #10 tablet 03/13/18 Rivaroxaban [Xarelto] 03/13/18 Amox/Clav 875/125 [Augmentin] 1 each PO Q12H #13 tablet 10/21/18 Hydrocodone/Acetaminophen 1 - 2 each PO Q6H PRN #14 tablet 10/21/18 [Hydrocodon-Acetaminophen 5-325] Amox/Clav 875/125 [Augmentin] 1 each PO Q8H #30 tablet 10/24/18 Oxycodone HCl/Acetaminophen 1 - 2 each PO Q6H PRN #14 tablet 10/24/18 [Percocet 5-325 mg Tablet] Promethazine [Phenergan] 25 mg PO Q6H PRN #10 tab 10/24/18 - Allergies Allergies/Adverse Reactions: Allergies Allergy/AdvReac Type Severity Reaction Status Date / Time povidone-iodine Allergy Intermediate Hives Verified 10/28/18 21:57 [From Betadine] soap * [From Betadine] Allergy Intermediate Hives Verified 10/28/18 21:57 Sulfa (Sulfonamide Allergy Intermediate Hives Verified 10/28/18 21:57 Antibiotics) ciprofloxacin [From Cipro] AdvReac Rash Verified 10/28/18 21:57 metronidazole [From Flagyl] AdvReac Rash Verified 10/28/18 21:57 Flu vaccine Allergy Mild Rash Uncoded 10/28/18 21:57 - Social History Does the pt smoke?: No Smoking Status: Never smoker Does the pt drink ETOH?: No Does the pt have substance abuse?: No - Immunizations Immunizations are current?: Yes Immunizations: TDAP >10years/unknown PD ED PE NORMAL - Vitals Vital signs reviewed: Yes - General General: Alert and oriented X 3, No acute distress, Well developed/nourished - HEENT HEENT: Moist mucous membranes - Neck Neck: Thyroid normal - Cardiac Cardiac: No murmur, No gallop, No rub - Respiratory Respiratory: No respiratory distress, Clear bilaterally - Abdomen Abdomen: Soft, Non tender - Derm Derm: Normal color, Warm and dry - Extremities Extremities: No edema PD ED PE EXPANDED - Cardiac Cardiac: Tachy, Irregularly irregular Results - Vitals Vitals: Oxygen O2 Source Room air - EKG (time done) No standard instances Rate: Rate (enter#) (147), Tachy Rhythm: Atrial fibrillation [place]: LAD Ischemia: Normal ST segments, Q waves (III, aVF) #2 Rate: Rate (enter#) (92) Rhythm: NSR [place]: LAD Intervals: Normal VT QRS: Normal Ischemia: Normal ST segments, Q waves (III, aVF) - Labs Labs: Laboratory Tests 10/28/18 10/28/18 10/28/18 23:06 23:06 23:06 WBC 9.5 RBC 4.55 Hgb 13.4 Hct 39.5 MCV 86.8 MCH 29.5 MCHC 33.9 RDW 13.4 Plt Count 209 MPV 10.1 Neut # (Auto) 5.0 Lymph # (Auto) 3.2 [place] # (Auto) 0.9 Eos # (Auto) 0.3 Baso # (Auto) 0.0 Absolute Nucleated RBC 0.00 Nucleated RBC % 0.0 Sodium 137 Potassium 3.0 L Chloride 106 Carbon Dioxide 23 Anion Gap 8.0 BUN 10 Creatinine 0.7 Estimated GFR (MDRD) 83 L Glucose 131 H Calcium 9.0 Total Bilirubin 0.5 AST 46 H ALT 55 Alkaline Phosphatase 48 Troponin I 0.12 Total Protein 7.0 Albumin 3.6 Globulin 3.4 Albumin/Globulin Ratio 1.1 Lipase 79 H 10/29/18 02:25 WBC RBC Hgb Hct MCV MCH MCHC RDW Plt Count MPV Neut # (Auto) Lymph # (Auto) [place] # (Auto) Eos # (Auto) Baso # (Auto) Absolute Nucleated RBC Nucleated RBC % Sodium Potassium Chloride Carbon Dioxide Anion Gap BUN Creatinine Estimated GFR (MDRD) Glucose Calcium Total Bilirubin AST ALT Alkaline Phosphatase Troponin I 0.13 Total Protein Albumin Globulin Albumin/Globulin Ratio Lipase PD MEDICAL DECISION MAKING - ED course Complexity details: reviewed old records, reviewed results, re-evaluated pat ient, considered differential, d/w patient ED course: reportedly SVT in field and converter to NSR with adenosine, then LUZ MARINA en route to ED. IV cardizem ordered, but just before administration if this medication, patient converted to NSR and remained in NSR, and asymptomatic, during remainder of ED stay. Departure - Departure Disposition: 01 Home, Self Care Clinical Impression: Chest pain Qualifiers: Chest pain type: unspecified Qualified Code(s): R07.9 - Chest pain, unspecified Atrial fibrillation Qualifiers: Atrial fibrillation type: paroxysmal Qualified Code(s): I48.0 - Paroxysmal atrial fibrillation Condition: Good Health Concerns: chest pain, palpitations Plan of Treatment: follow up with payroll human resources assistant Care Goals: prevention of symptom recurrence Assessment: see diagnoses Instructions: ED Afib, ED Chest Pain Atypical Unkn Cause, ED Tachycardia Pat PSVT Comments: Follow up with your payroll human resources assistant, next available appointment Discharge Date/Time: 10/29/18 03:26
[2018-10-28] MEDS ORDERED: diltiaZEM INJ 5 MG/ML VIAL IVP STA (22:38)
[2018-10-28] MEDS ORDERED: diltiaZEM INJ 5 MG/ML VIAL ONE (23:06)
[2018-10-28 23:15] LABS: BASOPHILS % (AUTO) 0.4 %; EOSINOPHILS # (AUTO) 0.3 10^3/uL (0.0-0.7); EOSINOPHILS % (AUTO) 3.2 %; HGB - HEMOGLOBIN 13.4 g/dL (12.0-16.0); LYMPHOCYTES # (AUTO) 3.2 10^3/uL (1.5-3.5); LYMPHOCYTES % (AUTO) 34.2 %; MEAN CORPUSCULAR HEMOGLOBIN 29.5 pg (27.0-31.0); MEAN CORPUSCULAR HGB CONC 33.9 g/dL (32.0-36.0); MEAN CORPUSCULAR VOLUME 86.8 fL (81.0-99.0); MEAN PLATELET VOLUME 10.1 fL (7.9-10.8); MONOCYTES # (AUTO) 0.9 10^3/uL (0.0-1.0); MONOCYTES % (AUTO) 9.1 %; NEUTROPHILS % (AUTO) 52.6 %; PLT - PLATELET COUNT 209 10^3/uL (130-450); RED BLOOD COUNT 4.55 10^6/uL (4.20-5.40); RED CELL DISTRIBUTION WIDTH 13.4 % (12.0-15.0); WHITE BLOOD COUNT 9.5 x10^3/uL (4.8-10.8)
[2018-10-28 23:29] LABS: ALBUMIN 3.6 g/dL (3.2-5.5); ALBUMIN/GLOBULIN RATIO 1.1 (1.0-2.2); BILIRUBIN,TOTAL 0.5 mg/dL (0.2-1.0); CREATININE 0.7 mg/dL (0.4-1.0)
[2018-10-28] MEDS ORDERED: POTASSIUM CHLORIDE 20 MEQ TABLET PO STA (23:33)
[2018-10-29 03:20] VITALS: BP 123/41
== END 2018-10-29 03:26 | disposition home or self-care (01) ==
LOC: EDUNIT# → ED 21:48
DX: I48.91 Unspecified atrial fibrillation (principal); R07.9 Chest pain, unspecified; I10 Essential (primary) hypertension; K21.9 Gastro-esophageal reflux disease without esophagitis
CPT/HCPCS: 80053; 83690; 84484; 85025; 93005; 99284; A9270

== ENCOUNTER 2018-11-12 19:11 | Observation (INO) | payer MEDICARE, OTHER ==
[2018-11-12 19:31] LABS: BILIRUBIN,URINE NEGATIVE (NEGATIVE); GLUCOSE, URINE (UA) NEGATIVE (NEGATIVE); KETONES,URINE (UA) NEGATIVE (NEGATIVE); LEUKOCYTE ESTERASE, URINE NEGATIVE (NEGATIVE); NITRITE,URINE NEGATIVE (NEGATIVE); OCCULT BLOOD,URINE NEGATIVE (NEGATIVE); PH,URINE 6.5 PH (5.0-7.5); PROTEIN,URINE NEGATIVE (NEGATIVE); UROBILINOGEN,URINE 0.2 (NORMAL) E.U./dL (NORMAL)
[2018-11-12 19:34] LABS: CLARITY,URINE CLEAR (CLEAR)
[2018-11-12 19:49] LABS: BASOPHILS % (AUTO) 0.4 %; EOSINOPHILS # (AUTO) 0.2 10^3/uL (0.0-0.7); EOSINOPHILS % (AUTO) 2.4 %; HGB - HEMOGLOBIN 13.9 g/dL (12.0-16.0); LYMPHOCYTES # (AUTO) 3.6 10^3/uL (1.5-3.5); LYMPHOCYTES % (AUTO) 36.8 %; MEAN CORPUSCULAR HEMOGLOBIN 29.1 pg (27.0-31.0); MEAN CORPUSCULAR HGB CONC 32.9 g/dL (32.0-36.0); MEAN CORPUSCULAR VOLUME 88.7 fL (81.0-99.0); MEAN PLATELET VOLUME 10.1 fL (7.9-10.8); MONOCYTES # (AUTO) 0.8 10^3/uL (0.0-1.0); MONOCYTES % (AUTO) 8.3 %; NEUTROPHILS % (AUTO) 51.8 %; PLT - PLATELET COUNT 191 10^3/uL (130-450); RED BLOOD COUNT 4.77 10^6/uL (4.20-5.40); WHITE BLOOD COUNT 9.7 x10^3/uL (4.8-10.8)
[2018-11-12 19:59] LABS: ALBUMIN/GLOBULIN RATIO 1.3 (1.0-2.2); BILIRUBIN,TOTAL 0.9 mg/dL (0.2-1.0); CALCIUM 9.4 mg/dL (8.5-10.3); CREATININE 0.8 mg/dL (0.4-1.0); TOTAL PROTEIN 7.1 g/dL (6.7-8.2)
--- NOTE | 2018-11-12 20:00 | ED Physician Documentation ---
PD HPI ABD PAIN - Stated complaint Stated Complaint: ABD PX/FEVER/NAUSEA - Chief complaint Chief Complaint: Abd Pain - History obtained from History obtained from: Patient - History of Present Illness Timing - onset: How many weeks ago Timing - duration: Weeks Timing - details: Gradual onset Quality: Other ("Like her bladder is full") Location: Periumbilical, RLQ, LLQ Radiation: No: Lower back Improved by: Other (Nothing) Worsened by: Other (Nothing) Associated symptoms: Fever (99.8), Nausea, Vomiting (None in the past 24 hours). No: Constipation, Melena, Hematochezia, Dysuria, Hematuria, Chest pain, Near syncope / syncope Similar symptoms before: Diagnosis (Diverticulitis) Recently seen: Emergency Dept - Additional information Additional information: This is a 68-year-old woman who presents with complaints that she has had pain in her lower abdomen since 21 October when she was seen here in the emergency department. They did a CT scan and told her she had a kidney stone and some mild diverticulitis. She was placed on an antibiotic but had to return 3 days later because the pain medicine was not helping the pain. She was changed to a different pain medication and increased on the dose of the Augmentin she was taking. She says the pain has never completely gone away but over this past week it has been increasing and she took her last dose of the Augmentin on Thursday. She describes the pain as like having a "full bladder". Then she will get surges of pain as well. She is also had some intermittent rectal pain. She took 2 Fleet suppositories yesterday thinking that she might be constipated even though she did not feel constipated and did have a bowel movement. She has not seen blood in the stool. She has nausea and chronic intermittent vomiting in the mornings. She has not vomited today. Patient has been worked up with colonoscopy 2 years ago that showed some diverticuli. She has had multiple abdominal surgeries including Appendectomy, cholecystectomy, hysterectomy, has been of a bladder sling and an abdominoplasty. Patient did take Motrin last night and this morning. She does not take the oxycodone that she was prescribed because she cannot take it at work or within 11 hours of having to go to work. She did work today. She reports low-grade fever at 99.8. No dysuria or hematuria. Patient has been short of breath but that is chronic issue related to asthma. Review of Systems Constitutional: reports: Fever Cardiac: reports: Palpitations (Recently seen in the emergency department with SVT). denies: Chest pain / pressure, Pedal edema Respiratory: reports: Dyspnea. denies: Cough GI: reports: Abdominal Pain, Nausea, Vomiting : reports: 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. 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[employer] LVN: Tubal ligation, 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 - Present Medications Home Medications: Ambulatory Orders Medication Instructions Recorded Confirmed Lisinopril/Hydrochlorothiazide 1 each PO DAILY 12/20/12 11/16/16 [Lisinopril-Hctz 10-12.5 mg Tab] Cholecalciferol (Vitamin D3) 1 tab PO DAILY 04/11/15 11/16/16 [Vitamin D-3] Fluticasone 44 Mcg [Flovent] 1 inhaler IH BID 04/11/15 11/16/16 Ipratropium/Albuterol [Combivent 1 puffs IH QID 04/11/15 11/16/16 Respimat] Ondansetron HCl [Zofran] 1 tab PO Q6HR 04/11/15 11/16/16 Loratadine [Claritin] 10 mg ORAL DAILY 03/29/16 11/16/16 Azelastine HCl 03/13/18 03/13/18 Cyclobenzaprine [Flexeril] 03/13/18 Famotidine [Pepcid] 20 mg PO BID #60 tablet 03/13/18 Metoprolol Tartrate 03/13/18 Omeprazole 20 mg PO DAILY #30 tab. 03/13/18 Ondansetron Odt [Zofran] 4 mg TL Q6H PRN #10 tablet 03/13/18 Rivaroxaban [Xarelto] 03/13/18 Amox/Clav 875/125 [Augmentin] 1 each PO Q12H #13 tablet 10/21/18 Hydrocodone/Acetaminophen 1 - 2 each PO Q6H PRN #14 tablet 10/21/18 [Hydrocodon-Acetaminophen 5-325] Amox/Clav 875/125 [Augmentin] 1 each PO Q8H #30 tablet 10/24/18 Oxycodone HCl/Acetaminophen 1 - 2 each PO Q6H PRN #14 tablet 10/24/18 [Percocet 5-325 mg Tablet] Promethazine [Phenergan] 25 mg PO Q6H PRN #10 tab 10/24/18 - Allergies Allergies/Adverse Reactions: Allergies Allergy/AdvReac Type Severity Reaction Status Date / Time povidone-iodine Allergy Intermediate Hives Verified 11/12/18 19:15 [From Betadine] soap * [From Betadine] Allergy Intermediate Hives Verified 11/12/18 19:15 Sulfa (Sulfonamide Allergy Intermediate Hives Verified 11/12/18 19:15 Antibiotics) ciprofloxacin [From Cipro] AdvReac Rash Verified 11/12/18 19:15 metronidazole [From Flagyl] AdvReac Rash Verified 11/12/18 19:15 Flu vaccine Allergy Mild Rash Uncoded 11/12/18 19:15 - Social History Does the pt smoke?: No Smoking Status: Never smoker Does the pt drink ETOH?: No Does the pt have substance abuse?: No - Immunizations Immunizations are current?: Yes Immunizations: TDAP >10years/unknown - POLST Patient has POLST: No PD ED PE NORMAL - Vitals Vital signs reviewed: Yes - General General: Alert and oriented X 3, No acute distress, Well developed/nourished, Other (Obese. 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, No motor deficit, No sensory deficit, Normal speech - Psych Psych: Normal mood, Normal affect Results - Vitals Vitals: Vital Signs - 24 hr 11/12/18 11/12/18 11/12/18 19:15 19:56 21:12 Temperature 36.0 C L 36.7 C Heart Rate 105 H 74 78 Respiratory 20 18 18 Rate Blood Pressure 148/69 H 143/55 H 146/70 H O2 Saturation 96 97 93 11/12/18 11/12/18 22:20 23:54 Temperature 36.0 C L Heart Rate 86 Respiratory 22 Rate Blood Pressure 134/46 H O2 Saturation 96 Oxygen O2 Source Room air - Labs Labs: Laboratory Tests 11/12/18 11/12/18 11/12/18 19:19 19:42 19:42 WBC 9.7 RBC 4.77 Hgb 13.9 Hct 42.3 MCV 88.7 MCH 29.1 MCHC 32.9 RDW 14.0 Plt Count 191 MPV 10.1 Neut # (Auto) 5.0 Lymph # (Auto) 3.6 H [place] # (Auto) 0.8 Eos # (Auto) 0.2 Baso # (Auto) 0.0 Absolute Nucleated RBC 0.00 Nucleated RBC % 0.0 Sodium 139 Potassium 3.9 Chloride 101 Carbon Dioxide 25 Anion Gap 13.0 BUN 11 Creatinine 0.8 Estimated GFR (MDRD) 71 L Glucose 108 H Calcium 9.4 Total Bilirubin 0.9 AST 46 H ALT 62 H Alkaline Phosphatase 46 Total Protein 7.1 Albumin 4.0 Globulin 3.1 Albumin/Globulin Ratio 1.3 Lipase 54 H Urine Color YELLOW Urine Clarity CLEAR Urine pH 6.5 Ur Specific [place] <=1.005 Urine Protein NEGATIVE Urine Glucose (UA) NEGATIVE Urine Ketones NEGATIVE Urine Occult Blood NEGATIVE Urine Nitrite NEGATIVE Urine Bilirubin NEGATIVE Urine Urobilinogen 0.2 (NORMAL) Ur Leukocyte Esterase NEGATIVE Ur Microscopic Review NOT INDICATED Urine Culture Comments NOT INDICATED PD MEDICAL DECISION MAKING - ED course Complexity details: reviewed old records, reviewed results, d/w patient ED course: Patient has a normal white blood cell count. Her liver enzymes are mildly elevated which they have been in the past and her lipase is mildly elevated which is also been in the past. Her recent CT abdomen pelvis did show inflammatory changes c/w diverticulitis. Since she is not resolving after outpatient antibiotics, will repeat CT with IV contrast this time. The customer service technician requested premedication with Benadryl due to possible iodine allergy. She is given 50 of Benadryl and 125 mg of Solu-Medrol IV. CT scan did show persistent diverticulitis. Given the fact that she failed outpatient treatment with Augmentin I felt she should be admitted. She is allergic to Bactrim, Cipro and Flagyl so have medicated her with Zosyn. Discussed with the hospitalist and he is agreed to observation admission. Departure - Departure Disposition: ED Place in Observation Clinical Impression: Diverticulitis Condition: Good
[2018-11-12] MEDS ORDERED: diphenhydrAMINE INJ 50 MG/ML VIAL IVP STA (21:43)
[2018-11-12] MEDS ORDERED: methylPREDNISolone SUCCINATE 125 MG/2 ML VIAL IVP STA (21:43)
[2018-11-12] MEDS ORDERED: IOVERSOL 320 100 ML VIAL IVP ONE ×2 (21:57→22:24)
--- NOTE | 2018-11-12 22:50 | CT Report ---
Reason: abd pain not resolved after abxs for divertic Procedure Date: 11/12/2018 Accession Number: [id number] / [id number] Procedure: CT - Abdomen/Pelvis W CPT Code: FULL RESULT: EXAM: CT ABDOMEN AND PELVIS EXAM DATE: 11/12/2018 10:22 PM. CLINICAL HISTORY: Abdomen pain. Not resolved after antibiotics for diverticulitis. COMPARISONS: ABDOMEN/PELVIS W/O 01/29/2014 2:29 PM ABDOMEN/PELVIS W/O 10/21/2018 8:53 PM. TECHNIQUE: Routine helical CT imaging was performed through the abdomen and pelvis. IV contrast: Contrast. Enteric contrast: No. Reconstructions: Coronal and sagittal. In accordance with CT protocol optimization, one or more of the following dose reduction techniques were utilized for this exam: automated exposure control, adjustment of mA and/or KV based on patient size, or use of iterative reconstructive technique. FINDINGS: Lung Bases: Unremarkable. Liver: Diffuse low density. Otherwise unremarkable. Gallbladder/Bile Ducts: 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. No ductal dilatation. Spleen: Normal. Pancreas: Normal. Adrenal Glands: Normal. Kidneys: Normal. No masses or hydronephrosis. Peritoneal Cavity/Bowel: Diverticulosis. Mild wall thickening and fat stranding, lower sigmoid colon. No abscess or extraluminal air.. No free fluid, free air or adenopathy. No masses. Nonvisualized appendix. Pelvic Organs: 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. Unremarkable bladder. Vasculature: No aneurysms or other significant abnormality. Bones: Minimal S-shaped scoliosis. Other: None. IMPRESSION: Mild uncomplicated diverticulitis, lower sigmoid colon. RADIA
[2018-11-12] MEDS ORDERED: PIPERACILLIN/TAZOBACTAM 4.5 GM in SODIUM CHLORIDE 0.9% MINIBAG 100 ML IV STA (23:09)
[2018-11-12] MEDS ORDERED: SODIUM CHLORIDE FLUSH 0.9% 10 ML SYRINGE IVP PRN (23:57)
--- NOTE | 2018-11-13 00:38 | HISTORY & PHYSICAL EXAMINATION ---
Chief Complaint - Chief Complaint Chief Complaint: Abdominal pain History of Present Illness - Admitted From Admitted From:: Home - History Obtained From Records Reviewed: Yes History obtained from: Patient, EMR, ER Physician - History of Present Illness HPI Comment/Other: This is a 68 year old female with a history of hypertension, atrial fibrillation (on xarelto), and GERD who presents from home for worsening lower quadrant abdominal pain. She was seen in the ED back in October [address] at that was concerning for possible diverticulitis. She was discharged home with Augmentin. She reports her pain improved slightly initially but never resolved. She took the antibiotic up until a few days ago. She presents today because her pain is worsening and she has had decreased appetite. She reports not being able to eat today due to nausea and fear of worsening pain. She also reports a temperate of 99.8 at home. She denies dysuria, urgency, frequency. She reports having two colonoscopies in the past that revealed diverticuli. She reports no family history of diverticulitis or colon cancer. In the emergency department, a CT of the abdomen revealed mild uncomplicated diverticulitis. She received IV Zosyn. Medicine was consulted for ongoing symptoms that failed outpatient treatment. History - Past Medical History Cardiovascular: reports: Hypertension, Other (SVT) Respiratory: reports: Asthma GI: reports: GERD, Diverticulitis : reports: Kidney stones Psych: reports: None Musculoskeletal: reports: Chronic back pain Derm: reports: None MRSA Hx?: No - Past Surgical History General: reports: 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, Appendectomy, Colonoscopy /EVP GENERAL COUNSEL: reports: Tubal ligation, 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 - Family & Social History Family History Comment/Other: No significant family history Living arrangement: At home Social History Notes: Lives here on [facility]. 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 - Substance History Use: Uses substance without health or social issues: NONE - POLST Patient has POLST: No Meds/Allgy - Home Medications Home Medications: Ambulatory Orders Medication Instructions Recorded Confirmed Lisinopril/Hydrochlorothiazide 1 each PO DAILY 12/20/12 11/16/16 [Lisinopril-Hctz 10-12.5 mg Tab] Cholecalciferol (Vitamin D3) 1 tab PO DAILY 04/11/15 11/16/16 [Vitamin D-3] Fluticasone 44 Mcg [Flovent] 1 inhaler IH BID 04/11/15 11/16/16 Ipratropium/Albuterol [Combivent 1 puffs IH QID 04/11/15 11/16/16 Respimat] Ondansetron HCl [Zofran] 1 tab PO Q6HR 04/11/15 11/16/16 Loratadine [Claritin] 10 mg ORAL DAILY 03/29/16 11/16/16 Azelastine HCl 03/13/18 03/13/18 Cyclobenzaprine [Flexeril] 03/13/18 Famotidine [Pepcid] 20 mg PO BID #60 tablet 03/13/18 Metoprolol Tartrate 03/13/18 Omeprazole 20 mg PO DAILY #30 tab. 03/13/18 Ondansetron Odt [Zofran] 4 mg TL Q6H PRN #10 tablet 03/13/18 Rivaroxaban [Xarelto] 03/13/18 Amox/Clav 875/125 [Augmentin] 1 each PO Q12H #13 tablet 10/21/18 Hydrocodone/Acetaminophen 1 - 2 each PO Q6H PRN #14 tablet 10/21/18 [Hydrocodon-Acetaminophen 5-325] Amox/Clav 875/125 [Augmentin] 1 each PO Q8H #30 tablet 10/24/18 Oxycodone HCl/Acetaminophen 1 - 2 each PO Q6H PRN #14 tablet 10/24/18 [Percocet 5-325 mg Tablet] Promethazine [Phenergan] 25 mg PO Q6H PRN #10 tab 10/24/18 - Allergies Allergies/Adverse Reactions: Allergies Allergy/AdvReac Type Severity Reaction Status Date / Time povidone-iodine Allergy Intermediate Hives Verified 11/12/18 19:15 [From Betadine] soap * [From Betadine] Allergy Intermediate Hives Verified 11/12/18 19:15 Sulfa (Sulfonamide Allergy Intermediate Hives Verified 11/12/18 19:15 Antibiotics) ciprofloxacin [From Cipro] AdvReac Rash Verified 11/12/18 19:15 metronidazole [From Flagyl] AdvReac Rash Verified 11/12/18 19:15 Flu vaccine Allergy Mild Rash Uncoded 11/12/18 19:15 Review of Systems - Constitutional Constitutional: reports: Fever, Poor appetite - Cardiovascular Cariovascular: reports: Edema. denies: Chest pain - Respiratory Respiratory: denies: SOB at rest - Gastrointestinal Gastrointestinal: reports: Abdominal pain, Nausea, Poor appetite. denies: Diarrhea, Black stools, Bloody stools, Vomiting - Genitourinary Genitourinary: denies: Dysuria, Frequency, Urgency - Neurological Neurological: denies: General weakness - All Other Systems All Other Systems: reports: Reviewed and negative Prior Level of Functionality: Independent with ADL's. Exam - Vital Signs Reviewed Vital Signs: Yes Vital Signs: Vital Signs x48h Temp Pulse Resp BP Pulse Ox 11/12/18 23:54 36.0 C L 11/12/18 22:20 86 22 134/46 H 96 11/12/18 21:12 36.7 C 78 18 146/70 H 93 11/12/18 19:56 74 18 143/55 H 97 11/12/18 19:15 36.0 C L 105 H 20 148/69 H 96 - Physical Exam General Appearance: positive: No acute distress, Alert Eyes Bilateral: positive: Normal inspection ENT: positive: ENT inspection nml Neck: positive: Nml inspection Respiratory: positive: No respiratory distress, Breath sounds nml Cardiovascular: positive: Regular rate & rhythm, No murmur Abdomen: positive: Nml bowel sounds, Tenderness (Left lower quadrant to deep palpation.). negative: Guarding, Rebound Skin: positive: Warm, Dry Extremities: positive: Pedal edema Neurologic/Psychiatric: positive: Oriented x3 Conclusion/Plan - Problem List (1) Diverticulitis Conclusion/Plan: Her symptoms and CT scan findings are consistent with diverticulitis. She unfortunately failed outpatient treatment with Augmentin as her pain has persisted and she has had poor oral intake. Fortunately she is not tachycardic or febrile and does not have leukocytosis. - Will admit under OBS for IV Zosyn given her persistent pain and poor oral intake - Light diet as tolerated - If no improvement in pain, will ask General Surgery to elderly caregiver their input. (2) Hypertension Conclusion/Plan: She is currently normotensive. On Lisinopril/HCTZ, Metoprolol at home. - Resume home medications (3) Asthma Conclusion/Plan: Stable. On Combivent and Flovent at home. - Continue home inhaler (4) Atrial fibrillation Conclusion/Plan: She has history of paroxysmal atrial fibrillation and was seen in the ED about two weeks ago for SVT which broke with Adenosine. Currently rate controlled and in sinus. On Metoprolol and Xarelto at home. - Continue home medications Qualifiers: Atrial fibrillation type: paroxysmal Qualified Code(s): I48.0 - Paroxysmal atrial fibrillation (5) GERD (gastroesophageal reflux disease) Conclusion/Plan: Stable. On Omeprazole and Pepcid at home. - Continue home medications (6) Transaminitis Conclusion/Plan: Suspect this likely related to NAFLD given her obesity. CT of the abdomen showed diffuse low density liver. - Monitor LFT's - Outpatient follow up for weight loss. Give her BMI and medical comorbidities, she would like be a candidate for bariatric surgery. - Lab Results Fish Bones: 11/12/18 19:42 11/12/18 19:42 - Diagnostic Imaging Results Diagnostic Imaging Results: positive: Final report reviewed Core Measures - Anticipated LOS I expect patient to be DC'd or transferred within 96 hours.: Yes - Issues Hospital Issues and Management Plan: Uncomplicated diverticulitis that failed outpatient antibiotics. Poor oral intake. - DVT/VTE - Prophylaxis VTE/DVT Device ordered at admit?: No Not Ordered - Low Risk: Low Risk VTE/DVT Prophylaxis med ordered at admit?: No Not Ordered - Medical Reason: Not indicated (Patient on Xarelto)
[2018-11-13] MEDS: RIVAROXABAN 15 MG TABLET PO SCH ×2 (01:20→17:54)
[2018-11-13] MEDS: HYDROcod/ACETAM 5/325 MG TABLET PO PRN ×3 (01:20→17:54)
[2018-11-13] MEDS: SODIUM CHLORIDE FLUSH 0.9% 10 ML SYRINGE IVP SCH ×3 (02:52→13:39)
[2018-11-13] MEDS: PIPERACILLIN/TAZOBACTAM 3.375 GM in SODIUM CHLORIDE 0.9% MINIBAG 100 ML IV SCH ×3 (05:27→17:55)
[2018-11-13] MEDS: IPRATROPIUM/ALBUTEROL 3 ML NEB INH SCH ×3 (07:06→15:19)
[2018-11-13] MEDS ORDERED: ALBUTEROL NEB 2.5 MG/3 ML INH PRN (08:12)
[2018-11-13] MEDS: METOPROLOL TARTRATE 25 MG TABLET PO SCH ×2 (17:59→20:17)
[2018-11-13] MEDS ORDERED: CYCLOBENZAPRINE 10 MG TABLET PO PRN (18:02)
[2018-11-13] MEDS ORDERED: IPRATROPIUM/ALBUTEROL 3 ML NEB INH PRN (18:13)
[2018-11-14] MEDS: PIPERACILLIN/TAZOBACTAM 3.375 GM in SODIUM CHLORIDE 0.9% MINIBAG 100 ML IV SCH ×3 (00:47→12:03)
[2018-11-14] MEDS: SODIUM CHLORIDE FLUSH 0.9% 10 ML SYRINGE IVP SCH ×2 (00:47→09:23)
[2018-11-14] MEDS: HYDROcod/ACETAM 5/325 MG TABLET PO PRN ×3 (00:48→13:38)
[2018-11-14 06:01] LABS: BASOPHILS % (AUTO) 0.2 %; EOSINOPHILS # (AUTO) 0.1 10^3/uL (0.0-0.7); EOSINOPHILS % (AUTO) 0.4 %; HGB - HEMOGLOBIN 13.2 g/dL (12.0-16.0); LYMPHOCYTES # (AUTO) 3.1 10^3/uL (1.5-3.5); LYMPHOCYTES % (AUTO) 18.9 %; MEAN CORPUSCULAR HEMOGLOBIN 28.8 pg (27.0-31.0); MEAN CORPUSCULAR HGB CONC 32.8 g/dL (32.0-36.0); MEAN CORPUSCULAR VOLUME 87.8 fL (81.0-99.0); MEAN PLATELET VOLUME 10.4 fL (7.9-10.8); MONOCYTES # (AUTO) 0.9 10^3/uL (0.0-1.0); MONOCYTES % (AUTO) 5.6 %; NEUTROPHILS # (AUTO) 12.1 10^3/uL (1.5-6.6); NEUTROPHILS % (AUTO) 74.3 %; PLT - PLATELET COUNT 189 10^3/uL (130-450); RED BLOOD COUNT 4.59 10^6/uL (4.20-5.40); RED CELL DISTRIBUTION WIDTH 14.1 % (12.0-15.0); WHITE BLOOD COUNT 16.2 x10^3/uL (4.8-10.8)
[2018-11-14 06:11] LABS: ALBUMIN 3.6 g/dL (3.2-5.5); ALBUMIN/GLOBULIN RATIO 1.2 (1.0-2.2); BILIRUBIN,TOTAL 0.5 mg/dL (0.2-1.0); CALCIUM 9.1 mg/dL (8.5-10.3); CREATININE 0.7 mg/dL (0.4-1.0); MAGNESIUM 2.2 mg/dL (1.7-2.8); TOTAL PROTEIN 6.6 g/dL (6.7-8.2)
[2018-11-14] MEDS ORDERED: HYDROCHLOROTHIAZIDE PO SCH (09:00)
[2018-11-14] MEDS ORDERED: LISINOPRIL PO SCH (09:00)
[2018-11-14] MEDS ORDERED: hydroCHLOROthiazide 12.5 MG CAPSULE PO SCH (09:00)
[2018-11-14] MEDS ORDERED: [UNRECOGNIZED DRUG - OTHER] PO SCH (09:00)
[2018-11-14] MEDS ORDERED: BUDESONIDE 0.5 MG/2 ML NEB INH SCH (09:00)
[2018-11-14] MEDS ORDERED: LORATADINE 10 MG TABLET PO PRN (09:00)
[2018-11-14] MEDS ORDERED: LISINOPRIL 5 MG TABLET PO SCH (09:00)
[2018-11-14] MEDS: METOPROLOL TARTRATE 25 MG TABLET PO SCH ×2 (09:11→09:12)
--- NOTE | 2018-11-14 12:55 | Discharge Plan ---
Discharge Plan Problem Reviewed?: Yes Disposition: Home, Self Care Condition: Poor Prescriptions: HYDROcod/ACETAM 5/325 [[place] 5/325] 1 tab PO Q6HR PRN #15 tablet PRN Reason: Pain 5 to 7 Amox/Clav 875/125 [Augmentin] 1 each PO Q12H #12 tablet Saccharomyces Boulardii [Florastor] 250 mg PO DAILY #6 capsule Diet: Regular Activity Restrictions: Activity as Tolerated Shower Restrictions: No (fall precaution) Instruction Topics: Amoxicillin Clavulanic Acid tablets, Acetaminophen Oxycodone tablets Health Concerns: diverticulitis Plan of Treatment: continue antibiotics to finish the treatment course, gradually add solid food to your diet Care Goals: stabilization of your medical conditions Assessment: assessment as the above Additional Instructions or Follow Up instructions: you may followup your PCP in one week. Should your symptoms return or worsen, you may present ER, call 911 or call PCP for help No Smoking: If you smoke, Please STOP! Call for help. Follow-up with: BREA MARINA DO [Primary Care Provider] -
--- NOTE | 2018-11-14 13:01 | DISCHARGE SUMMARY ---
Discharge Summary Discharge Date: 11/14/18 Discharging Provider: ISLAS Primary Care Provider: Tressa Ashford Condition at Discharge: Good Discharge Disposition: 01 Home, Self Care Discharge Facility Name: home - DIAGNOSES Admission Diagnoses: (1) Diverticulitis (2) Hypertension (3) Asthma (4) Atrial fibrillation (5) GERD (gastroesophageal reflux disease) (6) Transaminitis Discharge Diagnoses with Status of Each Condition: 1) Diverticulitis resolved. (2) Hypertension stable (3) Asthma stable (4) Atrial fibrillation stable (5) GERD (gastroesophageal reflux disease) stable (6) Transaminitis resolved (7) lymphocytosis pt had 125 mg sole-metro, which likely caused pt's lymphocytosis, given by ER provider in the ER for breath difficult. After that, pt has no more SOB. pt is stable. - HPI History of Present Illness: refer from Dr. Muñoz's HPI on 11/13/18 This is a 68 year old female with a history of hypertension, atrial fibrillation (on xarelto), and GERD who presents from home for worsening lower quadrant abdominal pain. She was seen in the ED back in October 21 for similar symptoms. C T at that was concerning for possible diverticulitis. She was discharged home with Augmentin. She reports her pain improved slightly initially but never resolved. She took the antibiotic up until a few days ago. She presents today because her pain is worsening and she has had decreased appetite. She reports not being able to eat today due to nausea and fear of worsening pain. She also reports a temperate of 99.8 at home. She denies dysuria, urgency, frequency. She reports having two colonoscopies in the past that revealed diverticuli. She reports no family history of diverticulitis or colon cancer. In the emergency department, a CT of the abdomen revealed mild uncomplicated diverticulitis. She received IV Zosyn. Medicine was consulted for ongoing symptoms that failed outpatient treatment. - HOSPITAL COURSE Hospital Course: pt was admitted for abdominal pain and uncomplicated diverticulitis. pt was treated with IV of antibiotics. pt became better. pt's abdominal pain is controlled. pt can tolerate regular diet. pt is prescribed antibiotics to finish the treatment course. pt did not developed other complications at this time in the hospital - ALLERGIES Allergies/Adverse Reactions: Allergies Allergy/AdvReac Type Severity Reaction Status Date / Time povidone-iodine Allergy Intermediate Hives Verified 11/12/18 19:15 [From Betadine] soap * [From Betadine] Allergy Intermediate Hives Verified 11/12/18 19:15 Sulfa (Sulfonamide Allergy Intermediate Hives Verified 11/12/18 19:15 Antibiotics) ciprofloxacin [From Cipro] AdvReac Rash Verified 11/12/18 19:15 metronidazole [From Flagyl] AdvReac Rash Verified 11/12/18 19:15 Flu vaccine Allergy Mild Rash Uncoded 11/12/18 19:15 - MEDICATIONS Home Medications: Ambulatory Orders Medication Instructions Recorded Confirmed Lisinopril/Hydrochlorothiazide 1 each PO DAILY 12/20/12 11/13/18 [Lisinopril-Hctz 10-12.5 mg Tab] Fluticasone 44 Mcg [Flovent] 1 inhaler IH BID PRN 04/11/15 11/13/18 Ipratropium/Albuterol [Combivent 1 puffs IH QID PRN 04/11/15 11/13/18 Respimat] Loratadine [Claritin] 10 mg ORAL DAILY PRN 03/29/16 11/13/18 Metoprolol Tartrate 25 mg PO BID 03/13/18 11/13/18 Rivaroxaban [Xarelto] 20 mg PO QDDINNER 03/13/18 11/13/18 Albuterol 2.5 mg INH Q6H PRN 11/13/18 11/13/18 Cyclobenzaprine HCl 5 mg PO QPM PRN 11/13/18 11/13/18 Ondansetron Odt [Zofran Odt] 4 - 8 mg TL BID PRN 11/13/18 11/13/18 Amox/Clav 875/125 [Augmentin] 1 each PO Q12H #12 tablet 11/14/18 HYDROcod/ACETAM 5/325 [[place] 5/325] 1 tab PO Q6HR PRN #15 tablet 11/14/18 Saccharomyces Boulardii [Florastor] 250 mg PO DAILY #6 capsule 11/14/18 - PHYSICAL EXAM AT DISCHARGE General Appearance: positive: No acute distress, Alert. negative: Lethargic Eyes Bilateral: positive: Normal inspection, PERRL. negative: No lid inflammation, Conjunctivae nml ENT: positive: ENT inspection nml, Pharynx nml, No signs of dehydration. negative: Purulent nasal drainage, Pharyngeal erythema, Oral lesions Neck: positive: Nml inspection, Thyroid nml, No JVD, Trachea midline. negative: Thyromegaly, Lymphadenopathy (R), Lymphadenopathy (L), Stiff neck, Swelling/b ruising, Tracheal deviation Respiratory: positive: Chest non-tender, No respiratory distress, Breath sounds nml. negative: Wheezes, Rales, Rhonchi Cardiovascular: positive: Regular rate & rhythm, No murmur, No gallop. negative: Irregularly irregular, Extrasystoles, Tachycardia, Bradycardia, JVD present, Systolic murmur, Diastolic murmur Peripheral Pulses: positive: 2+ Abdomen: positive: Non-tender, No organomegaly, Nml bowel sounds, No distention. negative: Tenderness, Guarding, Rebound Back: positive: Nml inspection. negative: CVA tenderness (R), CVA tenderness (L ) Skin: positive: Color nml, No rash, Warm, Dry. negative: Cyanosis, Diaphoresis, Pallor Extremities: positive: Non-tender, Full ROM, Nml appearance. negative: Calf tenderness, Joint swelling, Yeimi's sign/cords Neurologic/Psychiatric: positive: Oriented x3, Motor nml, Sensation nml, Mood/affect nml. negative: Weakness, Sensory loss, Facial droop, Slurred/abnml speech, Depressed mood/affect - LABS Result Diagrams: 11/14/18 13:03 11/14/18 05:05 - FOLLOW UP Follow Up: you may followup your PCP in one week. Should your symptoms return or worsen, you may present ER, call 911 or call PCP for help - TIME SPENT Time Spent in Discharge (Minutes): 50
[2018-11-14 13:08] LABS: BASOPHILS % (AUTO) 0.3 %; EOSINOPHILS # (AUTO) 0.1 10^3/uL (0.0-0.7); EOSINOPHILS % (AUTO) 0.4 %; HGB - HEMOGLOBIN 13.7 g/dL (12.0-16.0); LYMPHOCYTES # (AUTO) 3.3 10^3/uL (1.5-3.5); LYMPHOCYTES % (AUTO) 24.5 %; MEAN CORPUSCULAR HEMOGLOBIN 29.9 pg (27.0-31.0); MEAN CORPUSCULAR HGB CONC 33.1 g/dL (32.0-36.0); MEAN CORPUSCULAR VOLUME 90.4 fL (81.0-99.0); MEAN PLATELET VOLUME 10.4 fL (7.9-10.8); MONOCYTES # (AUTO) 0.7 10^3/uL (0.0-1.0); NEUTROPHILS # (AUTO) 9.4 10^3/uL (1.5-6.6); PLT - PLATELET COUNT 173 10^3/uL (130-450); RED BLOOD COUNT 4.58 10^6/uL (4.20-5.40); RED CELL DISTRIBUTION WIDTH 14.2 % (12.0-15.0); WHITE BLOOD COUNT 13.6 x10^3/uL (4.8-10.8)
[2018-11-14 13:46] VITALS: BP 111/49
== END 2018-11-14 14:18 | disposition home or self-care (01) ==
LOC: ED 19:11 → MS2 23:57
PROVIDERS: ADMIT Internal Medicine; ATTEND Nurse Practitioner Gerontology
DX: K57.32 Diverticulitis of large intestine without perforation or abscess without bleeding (principal); R74.0 Nonspecific elevation of levels of transaminase and lactic acid dehydrogenase [LDH]; R79.89 Other specified abnormal findings of blood chemistry; I48.0 Paroxysmal atrial fibrillation; J45.909 Unspecified asthma, uncomplicated; D72.820 Lymphocytosis (symptomatic); I10 Essential (primary) hypertension; K21.9 Gastro-esophageal reflux disease without esophagitis; E66.9 Obesity, unspecified; Z87.442 Personal history of urinary calculi; Z68.39 Body mass index [BMI] 39.0-39.9, adult; Z90.49 Acquired absence of other specified parts of digestive tract; Z90.710 Acquired absence of both cervix and uterus; Z88.1 Allergy status to other antibiotic agents; Z79.01 Long term (current) use of anticoagulants; Z79.899 Other long term (current) drug therapy; Z79.51 Long term (current) use of inhaled steroids; Z86.79 Personal history of other diseases of the circulatory system
CPT/HCPCS: 36415; 74177; 80053; 81003; 83690; 83735; 85025; 94640; 96365; 96366; 96375; 99284; 99285; A9270; G0378; J1200; J7626; Q9967; 81001; 87086

== ENCOUNTER 2019-01-08 07:12 | Emergency (ER) | payer MEDICARE, OTHER ==
[2019-01-08] MEDS ORDERED: KETOROLAC 30 MG/ML VIAL IVP STA (07:43)
[2019-01-08] MEDS ORDERED: DEXAMETHASONE 10 MG/ML VIAL IVP STA (07:43)
[2019-01-08 07:48] LABS: BASOPHILS # (AUTO) 0.1 10^3/uL (0.0-0.1); BASOPHILS % (AUTO) 0.4 %; EOSINOPHILS # (AUTO) 0.1 10^3/uL (0.0-0.7); EOSINOPHILS % (AUTO) 1.1 %; HGB - HEMOGLOBIN 14.1 g/dL (12.0-16.0); LYMPHOCYTES # (AUTO) 2.6 10^3/uL (1.5-3.5); LYMPHOCYTES % (AUTO) 21.5 %; MEAN CORPUSCULAR HEMOGLOBIN 29.9 pg (27.0-31.0); MEAN CORPUSCULAR HGB CONC 34.1 g/dL (32.0-36.0); MEAN CORPUSCULAR VOLUME 87.5 fL (81.0-99.0); MEAN PLATELET VOLUME 10.3 fL (7.9-10.8); MONOCYTES % (AUTO) 8.4 %; NEUTROPHILS # (AUTO) 8.3 10^3/uL (1.5-6.6); NEUTROPHILS % (AUTO) 67.7 %; PLT - PLATELET COUNT 196 10^3/uL (130-450); RED BLOOD COUNT 4.72 10^6/uL (4.20-5.40); RED CELL DISTRIBUTION WIDTH 14.1 % (12.0-15.0); WHITE BLOOD COUNT 12.2 x10^3/uL (4.8-10.8)
--- NOTE | 2019-01-08 07:53 | ED Physician Documentation ---
History of Present Illness - Stated complaint Stated Complaint: CHEST PX - Chief complaint Chief Complaint: Cardiac - History obtained from History obtained from: Patient - History of Present Illness Timing: How many weeks ago (4) Pain level max: 5 Pain level now: 4 - Additonal information Additional information: 68-year-old female presents to the emergency department stating that she had a cardiac ablation on December 17. This was done at [facility]. Since that time she has had 2 normal echocardiograms and been placed on 2 Medrol Dosepaks for chest pain. Each time the steroids seem to take away the pain. She states it feels similar to past episodes of pleurisy. Took Tylenol last night which helped. She sees Dr. Beck at [facility]. Worse with taking a deep breath and moving. Better with rest, Tylenol and steroids. Review of Systems Constitutional: denies: Fever, Chills Nose: denies: Rhinorrhea / runny nose, Congestion Throat: denies: Sore throat Cardiac: denies: Palpitations, Pedal edema Respiratory: denies: Dyspnea, Cough, Wheezing GI: denies: Abdominal Pain, Nausea, Vomiting, Diarrhea, Hematemesis, Bloody / black stool : denies: Dysuria Skin: denies: Rash Musculoskeletal: denies: Neck pain, Back pain Neurologic: denies: Headache PD PAST MEDICAL HISTORY - Past Medical History Cardiovascular: Hypertension, Other Respiratory: Asthma GI: GERD, Diverticulitis : Kidney stones Psych: None Musculoskeletal: Chronic back pain Derm: None - Past Surgical History Past Surgical History: Yes General: 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, Appendectomy, Colonoscopy /[employer]: Tubal ligation, 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 - Present Medications Home Medications: Ambulatory Orders Medication Instructions Recorded Confirmed Lisinopril/Hydrochlorothiazide 1 each PO DAILY 12/20/12 11/13/18 [Lisinopril-Hctz 10-12.5 mg Tab] Fluticasone 44 Mcg [Flovent] 1 inhaler IH BID PRN 04/11/15 11/13/18 Ipratropium/Albuterol [Combivent 1 puffs IH QID PRN 04/11/15 11/13/18 Respimat] Loratadine [Claritin] 10 mg ORAL DAILY PRN 03/29/16 11/13/18 Metoprolol Tartrate 25 mg PO BID 03/13/18 11/13/18 Rivaroxaban [Xarelto] 20 mg PO QDDINNER 03/13/18 11/13/18 Albuterol 2.5 mg INH Q6H PRN 11/13/18 11/13/18 Cyclobenzaprine HCl 5 mg PO QPM PRN 11/13/18 11/13/18 Ondansetron Odt [Zofran Odt] 4 - 8 mg TL BID PRN 11/13/18 11/13/18 Amox/Clav 875/125 [Augmentin] 1 each PO Q12H #12 tablet 11/14/18 HYDROcod/ACETAM 5/325 [[place] 5/325] 1 tab PO Q6HR PRN #15 tablet 11/14/18 Saccharomyces Boulardii [Florastor] 250 mg PO DAILY #6 capsule 11/14/18 Methylprednisolone [Medrol] 4 mg PO DAILY #1 tab.ds.pk 01/08/19 - Allergies Allergies/Adverse Reactions: Allergies Allergy/AdvReac Type Severity Reaction Status Date / Time povidone-iodine Allergy Intermediate Hives Verified 01/08/19 07:30 [From Betadine] soap * [From Betadine] Allergy Intermediate Hives Verified 01/08/19 07:30 Sulfa (Sulfonamide Allergy Intermediate Hives Verified 01/08/19 07:30 Antibiotics) ciprofloxacin [From Cipro] AdvReac Rash Verified 01/08/19 07:30 metronidazole [From Flagyl] AdvReac Rash Verified 01/08/19 07:30 Flu vaccine Allergy Mild Rash Uncoded 11/12/18 19:15 - Social History Does the pt smoke?: No Smoking Status: Never smoker Does the pt drink ETOH?: No Does the pt have substance abuse?: No - Immunizations Immunizations are current?: Yes Immunizations: TDAP >10years/unknown - POLST Patient has POLST: No PD ED PE NORMAL - Vitals Vital signs reviewed: Yes - General General: Alert and oriented X 3, No acute distress, Well developed/nourished - HEENT HEENT: Moist mucous membranes - Neck Neck: Supple, no meningeal sign - Cardiac Cardiac: RRR, No murmur, Strong equal pulses - Respiratory Respiratory: No respiratory distress, Clear bilaterally - Abdomen Abdomen: Soft, Non tender, Non distended - Derm Derm: Warm and dry - Extremities Extremities: No edema - Neuro Neuro: Alert and oriented X 3 - Psych Psych: Normal mood, Normal affect Results - Vitals Vitals: Vital Signs - 24 hr 01/08/19 01/08/19 07:27 08:42 Temperature 37.0 C 36.8 C Heart Rate 84 95 Respiratory 20 18 Rate Blood Pressure 158/78 H 136/94 H O2 Saturation 97 98 Oxygen O2 Source Room air - EKG (time done) 0720 Rate: Rate (enter#) (85) Rhythm: NSR [place]: Normal Intervals: Normal [place] QRS: Normal Ischemia: Normal ST segments, Q waves (III, aVF) - Labs Labs: Laboratory Tests 01/08/19 01/08/19 01/08/19 07:30 07:30 07:30 WBC 12.2 H RBC 4.72 Hgb 14.1 Hct 41.3 MCV 87.5 MCH 29.9 MCHC 34.1 RDW 14.1 Plt Count 196 MPV 10.3 Neut # (Auto) 8.3 H Lymph # (Auto) 2.6 Sanders # (Auto) 1.0 Eos # (Auto) 0.1 Baso # (Auto) 0.1 Absolute Nucleated RBC 0.00 Nucleated RBC % 0.0 Sodium 136 Potassium 3.6 Chloride 100 L Carbon Dioxide 26 Anion Gap 10.0 BUN 15 Creatinine 0.7 Estimated GFR (MDRD) 83 L Glucose 125 H Calcium 9.1 Total Bilirubin 1.0 AST 22 ALT 34 Alkaline Phosphatase 46 Troponin I High Sens 4.4 Total Protein 6.9 Albumin 3.6 Globulin 3.3 Albumin/Globulin Ratio 1.1 Lipase 56 H - Rads (name of study) Chest x-ray Radiology: Prelim report reviewed, EMP read contemporaneously, See rad report (No acute disease) PD MEDICAL DECISION MAKING - ED course Complexity details: reviewed results, re-evaluated patient, considered differential (No ST elevation AR, no aortic dissection, no PE, no tension pneumothorax, no aortic aneurysm), d/w patient ED course: Patient is a 68-year-old female with atypical chest pain today. She is well- appearing and nontoxic. No evidence of pulmonary embolism. No evidence of acute coronary syndrome. Seems to be residual inflammation from her recent procedures. Feels better after Toradol and Decadron. Will place on a Medrol Dosepak for home. Patient counseled regarding signs and symptoms for which I believe and urgent re-evaluation would be necessary. Patient with good understanding of and agreement to plan and is comfortable going home at this time This document was made in part using voice recognition software. While efforts are made to proofread this document, sound alike and grammatical errors may occur. Departure - Departure Disposition: 01 Home, Self Care Clinical Impression: Chest wall pain Condition: Good Instructions: ED Chest Pain Pleurisy Follow-Up: BREA MARINA DO [Primary Care Provider] - Within 1 week Prescriptions: Methylprednisolone [Medrol] 4 mg PO DAILY #1 tab.ds.pk Comments: Use the medications as prescribed. Return if you worsen. Follow-up with your doctor for further care. Your testing is normal today Discharge Date/Time: 01/08/19 08:53
[2019-01-08 08:04] LABS: ALBUMIN 3.6 g/dL (3.2-5.5); ALBUMIN/GLOBULIN RATIO 1.1 (1.0-2.2); CALCIUM 9.1 mg/dL (8.5-10.3); CREATININE 0.7 mg/dL (0.4-1.0); TOTAL PROTEIN 6.9 g/dL (6.7-8.2)
--- NOTE | 2019-01-08 08:27 | XRAY Report ---
Reason: chest pain Procedure Date: 01/08/2019 Accession Number: [id number] / [id number] Procedure: XR - Chest 1 View X-Ray CPT Code: 13373 FULL RESULT: EXAM: CHEST RADIOGRAPHY EXAM DATE: 01/08/2019 08:01 AM. CLINICAL HISTORY: Chest pain. COMPARISON: CHEST 1 VIEW 03/13/2018 5:25 PM. TECHNIQUE: 1 view. FINDINGS: Lungs/Pleura: No focal opacities evident. No pleural effusion. No pneumothorax. Lung volumes are somewhat low. Mediastinum: Within exam limitations, the cardiomediastinal contour is normal. Other: None. IMPRESSION: No convincing acute cardiopulmonary abnormality. RADIA
[2019-01-08 08:43] VITALS: BP 136/94
== END 2019-01-08 08:53 | disposition home or self-care (01) ==
LOC: ED 07:12
DX: R07.89 Other chest pain (principal); I10 Essential (primary) hypertension
CPT/HCPCS: 36415; 71045; 80053; 83690; 84484; 85025; 93005; 96374; 99284

== ENCOUNTER 2019-01-16 11:58 | Emergency (ER) | payer MEDICARE, OTHER ==
[2019-01-16 12:07] VITALS: BP 134/71
[2019-01-16 12:25] LABS: BILIRUBIN,URINE NEGATIVE (NEGATIVE); GLUCOSE, URINE (UA) NEGATIVE (NEGATIVE); KETONES,URINE (UA) NEGATIVE (NEGATIVE); LEUKOCYTE ESTERASE, URINE NEGATIVE (NEGATIVE); NITRITE,URINE NEGATIVE (NEGATIVE); OCCULT BLOOD,URINE NEGATIVE (NEGATIVE); PROTEIN,URINE NEGATIVE (NEGATIVE); UROBILINOGEN,URINE 0.2 (NORMAL) E.U./dL (NORMAL)
[2019-01-16 12:30] LABS: BASOPHILS # (AUTO) 0.1 10^3/uL (0.0-0.1); BASOPHILS % (AUTO) 0.5 %; EOSINOPHILS # (AUTO) 0.2 10^3/uL (0.0-0.7); EOSINOPHILS % (AUTO) 1.7 %; HGB - HEMOGLOBIN 15.2 g/dL (12.0-16.0); LYMPHOCYTES # (AUTO) 4.8 10^3/uL (1.5-3.5); LYMPHOCYTES % (AUTO) 37.3 %; MEAN CORPUSCULAR HEMOGLOBIN 29.8 pg (27.0-31.0); MEAN CORPUSCULAR HGB CONC 33.7 g/dL (32.0-36.0); MEAN CORPUSCULAR VOLUME 88.4 fL (81.0-99.0); MEAN PLATELET VOLUME 9.7 fL (7.9-10.8); MONOCYTES # (AUTO) 1.2 10^3/uL (0.0-1.0); MONOCYTES % (AUTO) 8.9 %; NEUTROPHILS # (AUTO) 6.5 10^3/uL (1.5-6.6); NEUTROPHILS % (AUTO) 50.4 %; PLT - PLATELET COUNT 194 10^3/uL (130-450); RED CELL DISTRIBUTION WIDTH 14.6 % (12.0-15.0); WHITE BLOOD COUNT 12.9 x10^3/uL (4.8-10.8)
[2019-01-16 12:33] LABS: CLARITY,URINE CLEAR (CLEAR)
[2019-01-16 12:45] LABS: ALBUMIN 3.8 g/dL (3.2-5.5); ALBUMIN/GLOBULIN RATIO 1.1 (1.0-2.2); BILIRUBIN,TOTAL 0.5 mg/dL (0.2-1.0); CALCIUM 9.5 mg/dL (8.5-10.3); CREATININE 0.7 mg/dL (0.4-1.0); TOTAL PROTEIN 7.3 g/dL (6.7-8.2)
[2019-01-16] MEDS ORDERED: SODIUM CHLORIDE 0.9% 1,000 ML IV ONE (13:06)
[2019-01-16] MEDS ORDERED: cefTRIAXone 1 GM VIAL IVP STA (13:06)
[2019-01-16] MEDS ORDERED: ONDANSETRON 4 MG/2 ML VIAL IVP STA (13:06)
[2019-01-16] MEDS ORDERED: KETOROLAC 30 MG/ML VIAL IVP STA (13:08)
[2019-01-16] MEDS ORDERED: HYDROmorphone 2 MG/ML VIAL IVP STA (13:09)
--- NOTE | 2019-01-16 13:38 | ED Physician Documentation ---
PD HPI ABD PAIN - Stated complaint Stated Complaint: L SIDED ABD PX - Chief complaint Chief Complaint: Abd Pain - History obtained from History obtained from: Patient - History of Present Illness Timing - onset: How many days ago (1-2) Timing - duration: Days (1-2) Timing - details: Gradual onset, Still present Quality: Cramping, Aching, Pain Location: LUQ Radiation: No: Chest, Left flank Improved by: No: Eating Worsened by: Palpation. No: Eating, Breathing Associated symptoms: No: Fever, Nausea, Vomiting Similar symptoms before: Diagnosis (diverticulitis few times) Recently seen: Not recently seen Review of Systems Constitutional: denies: Fever, Chills GI: reports: Abdominal Pain. denies: Nausea, Vomiting, Constipation, Diarrhea Neurologic: denies: Generalized weakness, Focal weakness, Numbness, Near syncope PD PAST MEDICAL HISTORY - Past Medical History Cardiovascular: Hypertension, Other Respiratory: Asthma GI: GERD, Diverticulitis : Kidney stones Psych: None Musculoskeletal: Chronic back pain Derm: None - Past Surgical History Past Surgical History: Yes General: 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, Appendectomy, Colonoscopy /FISHING HAND: Tubal ligation, 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 - Present Medications Home Medications: Ambulatory Orders Medication Instructions Recorded Confirmed RX: Lisinopril/Hydrochlorothiazide 1 each PO DAILY 12/20/12 11/13/18 [Lisinopril-Hctz 10-12.5 mg Tab] RX: Fluticasone 44 Mcg [Flovent] 1 inhaler IH BID PRN 04/11/15 11/13/18 RX: Ipratropium/Albuterol 1 puffs IH QID PRN 04/11/15 11/13/18 [Combivent Respimat] RX: Loratadine [Claritin] 10 mg ORAL DAILY PRN 03/29/16 11/13/18 RX: Metoprolol Tartrate 25 mg PO BID 03/13/18 11/13/18 RX: Rivaroxaban [Xarelto] 20 mg PO QDDINNER 03/13/18 11/13/18 RX: Albuterol 2.5 mg INH Q6H PRN 11/13/18 11/13/18 RX: Cyclobenzaprine HCl 5 mg PO QPM PRN 11/13/18 11/13/18 RX: Ondansetron Odt [Zofran Odt] 4 - 8 mg TL BID PRN 11/13/18 11/13/18 Amox/Clav 875/125 [Augmentin] 1 each PO Q12H #12 tablet 11/14/18 RX: HYDROcod/ACETAM 5/325 [[place] 1 tab PO Q6HR PRN #15 tablet 11/14/18 5/325] Saccharomyces Boulardii [Florastor] 250 mg PO DAILY #6 capsule 11/14/18 Methylprednisolone [Medrol] 4 mg PO DAILY #1 tab.ds.pk 01/08/19 Amox/Clav 875/125 [Augmentin] 1 each PO TID #21 tablet 01/16/19 Hydrocodone/Acetaminophen 1 - 2 each PO Q6H PRN #20 tablet 01/16/19 [Hydrocodon-Acetaminophen 5-325] Ondansetron Odt [Zofran] 4 mg TL Q6H PRN #15 tablet 01/16/19 dexAMETHasone [Decadron] 4 mg PO DAILY #5 tablet 01/16/19 - Allergies Allergies/Adverse Reactions: Allergies Allergy/AdvReac Type Severity Reaction Status Date / Time povidone-iodine Allergy Intermediate Hives Verified 01/08/19 07:30 [From Betadine] soap * [From Betadine] Allergy Intermediate Hives Verified 01/08/19 07:30 Sulfa (Sulfonamide Allergy Intermediate Hives Verified 01/08/19 07:30 Antibiotics) ciprofloxacin [From Cipro] AdvReac Rash Verified 01/08/19 07:30 metronidazole [From Flagyl] AdvReac Rash Verified 01/08/19 07:30 Flu vaccine Allergy Mild Rash Uncoded 11/12/18 19:15 - Social History Does the pt smoke?: No Smoking Status: Never smoker Does the pt drink ETOH?: No Does the pt have substance abuse?: No - Immunizations Immunizations are current?: Yes Immunizations: TDAP >10years/unknown - POLST Patient has POLST: No PD ED PE NORMAL - Vitals Vital signs reviewed: Yes - General General: Alert and oriented X 3, Well developed/nourished - HEENT HEENT: Pharynx benign - Cardiac Cardiac: RRR, No murmur - Respiratory Respiratory: Clear bilaterally - Abdomen Abdomen: Normal bowel sounds, Soft, Non distended, No organomegaly, Other - Derm Derm: Normal color, Warm and dry - Neuro Neuro: Alert and oriented X 3, No motor deficit, Normal speech Results - Vitals Vitals: Vital Signs - 24 hr 01/16/19 12:05 Temperature 36.5 C Heart Rate 76 Respiratory 20 Rate Blood Pressure 134/71 H O2 Saturation 97 Oxygen O2 Source Room air - Labs Labs: Laboratory Tests 01/16/19 01/16/19 01/16/19 12:15 12:24 12:24 WBC 12.9 H RBC 5.10 Hgb 15.2 Hct 45.1 MCV 88.4 MCH 29.8 MCHC 33.7 RDW 14.6 Plt Count 194 MPV 9.7 Neut # (Auto) 6.5 Lymph # (Auto) 4.8 H [place] # (Auto) 1.2 H Eos # (Auto) 0.2 Baso # (Auto) 0.1 Absolute Nucleated RBC 0.00 Nucleated RBC % 0.0 Sodium 135 Potassium 4.0 Chloride 98 L Carbon Dioxide 27 Anion Gap 10.0 BUN 19 Creatinine 0.7 Estimated GFR (MDRD) 83 L Glucose 99 Calcium 9.5 Total Bilirubin 0.5 AST 24 ALT 37 Alkaline Phosphatase 50 Total Protein 7.3 Albumin 3.8 Globulin 3.5 Albumin/Globulin Ratio 1.1 Lipase 93 H Urine Color YELLOW Urine Clarity CLEAR Urine pH 6.0 Ur Specific [place] 1.015 Urine Protein NEGATIVE Urine Glucose (UA) NEGATIVE Urine Ketones NEGATIVE Urine Occult Blood NEGATIVE Urine Nitrite NEGATIVE Urine Bilirubin NEGATIVE Urine Urobilinogen 0.2 (NORMAL) Ur Leukocyte Esterase NEGATIVE Ur Microscopic Review NOT INDICATED Urine Culture Comments NOT INDICATED PD MEDICAL DECISION MAKING - ED course Complexity details: considered differential, d/w patient Departure - Departure Disposition: 01 Home, Self Care Clinical Impression: Left sided abdominal pain, Diverticulitis Condition: Stable Record reviewed to determine appropriate education?: Yes Instructions: ED Diverticulitis Follow-Up: BREA MARINA DO [Primary Care Provider] - Prescriptions: Amox/Clav 875/125 [Augmentin] 1 each PO TID #21 tablet dexAMETHasone [Decadron] 4 mg PO DAILY #5 tablet Hydrocodone/Acetaminophen [Hydrocodon-Acetaminophen 5-325] 1 - 2 each PO Q6H PRN #20 tablet PRN Reason: pain Ondansetron Odt [Zofran] 4 mg TL Q6H PRN #15 tablet PRN Reason: Nausea / Vomiting Comments: Stay well-hydrated. Augmentin 3 times a day for a week for the infection. Decadron daily for inflammation. Add ondansetron if needed for nausea and hydrocodone if needed for pain. 9 recheck if not improving well over the next 2 to 3 days and return sooner if worsening. Discharge Date/Time: 01/16/19 13:57
== END 2019-01-16 13:57 | disposition home or self-care (01) ==
LOC: ED 11:58
DX: K57.92 Diverticulitis of intestine, part unspecified, without perforation or abscess without bleeding (principal); I10 Essential (primary) hypertension; Z90.49 Acquired absence of other specified parts of digestive tract; Z79.01 Long term (current) use of anticoagulants
CPT/HCPCS: 36415; 80053; 81003; 83690; 85025; 96374; 96375; 99284; 99285; J1170; 81001; 87086

== ENCOUNTER 2019-02-07 08:00 | Emergency (ER) | payer MEDICARE, OTHER ==
[2019-02-07 08:10] VITALS: BP 137/118
--- NOTE | 2019-02-07 08:25 | ED Physician Documentation ---
PD HPI URI - Stated complaint Stated Complaint: SINUS PRESSURE/SORE THROAT - Chief complaint Chief Complaint: General - History obtained from History obtained from: Patient - History of Present Illness Timing - onset: How many days ago (several days of sinus pain left maxillary and periorbital. having wheezing exac of asthma, which occurs when ill for her. Has had some cough with left flank pain curing cough. No noted dysuria.) Timing duration: Days Timing details: Gradual onset, Still present Associated symptoms: Chills, Sinus pain (left), Dry cough, Dyspnea. No: Fever, Ear pain, Sore throat, Chest pain, NVD Contributing factors: COPD / asthma. No: Sick contact, Immunocompromised Worsened by: Activity Similar symptoms before: Diagnosis (exac asthma when gets URIs.) Recently seen: Not recently seen Review of Systems Constitutional: reports: Myalgias. denies: Fever, Chills Nose: reports: Congestion, Sinus pressure / pain. denies: Rhinorrhea / runny nose Throat: denies: Sore throat Cardiac: denies: Chest pain / pressure Respiratory: denies: Cough GI: denies: Abdominal Pain, Nausea, Vomiting, Diarrhea Skin: denies: Rash, Lesions Musculoskeletal: reports: Back pain (left flank/lower chest, with coughing) Neurologic: reports: Generalized weakness. 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: Tubal ligation, 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 - Present Medications Home Medications: Ambulatory Orders Medication Instructions Recorded Confirmed Lisinopril/Hydrochlorothiazide 1 each PO DAILY 12/20/12 11/13/18 [Lisinopril-Hctz 10-12.5 mg Tab] Fluticasone 44 Mcg [Flovent] 1 inhaler IH BID PRN 04/11/15 11/13/18 Ipratropium/Albuterol [Combivent 1 puffs IH QID PRN 04/11/15 11/13/18 Respimat] Metoprolol Tartrate 25 mg PO BID 03/13/18 11/13/18 Rivaroxaban [Xarelto] 20 mg PO QDDINNER 03/13/18 11/13/18 Albuterol 2.5 mg INH Q6H PRN 11/13/18 11/13/18 Cyclobenzaprine HCl 5 mg PO QPM PRN 11/13/18 11/13/18 Saccharomyces Boulardii [Florastor] 250 mg PO DAILY #6 capsule 11/14/18 Ondansetron Odt [Zofran] 4 mg TL Q6H PRN #15 tablet 01/16/19 Albuterol 2.5 mg INH Q4H PRN #30 neb 02/07/19 Amoxicillin 500 mg PO TID #21 capsule 02/07/19 Benzonatate [Tessalon Perle] 100 mg PO TID PRN #25 capsule 02/07/19 Hydrocodone/Acetaminophen [[place] 1 each PO Q6H PRN #20 tablet 02/07/19 5-325 Tablet] dexAMETHasone [Decadron] 4 mg PO DAILY #5 tablet 02/07/19 - Allergies Allergies/Adverse Reactions: Allergies Allergy/AdvReac Type Severity Reaction Status Date / Time povidone-iodine Allergy Intermediate Hives Verified 02/07/19 08:09 [From Betadine] soap * [From Betadine] Allergy Intermediate Hives Verified 02/07/19 08:09 Sulfa (Sulfonamide Allergy Intermediate Hives Verified 02/07/19 08:09 Antibiotics) ciprofloxacin [From Cipro] AdvReac Rash Verified 02/07/19 08:09 metronidazole [From Flagyl] AdvReac Rash Verified 02/07/19 08:09 Flu vaccine Allergy Mild Rash Uncoded 11/12/18 19:15 - Social History Does the pt smoke?: No Smoking Status: Never smoker Does the pt drink ETOH?: No Does the pt have substance abuse?: No - Immunizations Immunizations are current?: Yes Immunizations: TDAP >10years/unknown - POLST Patient has POLST: No PD ED PE NORMAL - Vitals Vital signs reviewed: Yes - General General: Alert and oriented X 3, No acute distress, Well developed/nourished - HEENT HEENT: Ears normal, Pharynx benign, Other (left maxillary and frontal sinus tenderness to percussion) - Neck Neck: Supple, no meningeal sign, No adenopathy - Cardiac Cardiac: RRR, No murmur - Respiratory Respiratory: Clear bilaterally - Abdomen Abdomen: Normal bowel sounds, Soft, Non tender, Non distended - Back Back: No CVA TTP - Derm Derm: Normal color, Warm and dry - Extremities Extremities: No tenderness to palpate, Normal ROM s pain, No edema, No calf tenderness / cord - Neuro Neuro: Alert and oriented X 3, No motor deficit, Normal speech Results - Vitals Vitals: Vital Signs - 24 hr 02/07/19 08:07 Temperature 37 C Heart Rate 99 Respiratory 20 Rate Blood Pressure 137/118 H O2 Saturation 95 Oxygen O2 Source Room air - Labs Labs: Laboratory Tests 02/07/19 08:20 Urine Color YELLOW Urine Clarity HAZY Urine pH 7.0 Ur Specific [place] 1.010 Urine Protein NEGATIVE Urine Glucose (UA) NEGATIVE Urine Ketones NEGATIVE Urine Occult Blood NEGATIVE Urine Nitrite NEGATIVE Urine Bilirubin NEGATIVE Urine Urobilinogen 0.2 (NORMAL) Ur Leukocyte Esterase SMALL H Urine RBC 0-5 Urine WBC 0-3 Ur Squamous Epith Cells MANY Squamous H Urine Bacteria Many H Ur Microscopic Review INDICATED Urine Culture Comments NOT INDICATED PD MEDICAL DECISION MAKING - ED course Complexity details: considered differential (has exac asthma, also sinusitis symptoms. Has some flank pain but normal urine, so presume muscular. ), d/w patient Departure - Departure Disposition: Home, Self Care Clinical Impression: Acute right flank pain Acute sinusitis Qualifiers: Sinusitis location: maxillary Recurrence: non-recurrent Qualified Code(s): J01.00 - Acute maxillary sinusitis, unspecified Exacerbation of asthma Qualifiers: Asthma severity: mild Asthma persistence: intermittent Qualified Code(s): J45.21 - Mild intermittent asthma with (acute) exacerbation Condition: Stable Record reviewed to determine appropriate education?: Yes Instructions: ED Sinusitis Abx Tx Follow-Up: BREA MARINA DO [Primary Care Provider] - Prescriptions: Albuterol 2.5 mg INH Q4H PRN #30 neb PRN Reason: Wheezing Amoxicillin 500 mg PO TID #21 capsule Benzonatate [Tessalon Perle] 100 mg PO TID PRN #25 capsule PRN Reason: Cough dexAMETHasone [Decadron] 4 mg PO DAILY #5 tablet Hydrocodone/Acetaminophen [[place] 5-325 Tablet] 1 each PO Q6H PRN #20 tablet PRN Reason: Pain Comments: Continue usual medications. Stay well-hydrated. Add Decadron steroid anti- inflammatory daily for 5 days to help with sinus and asthma. Amoxicillin 3 times a day for a week for potential bacterial infection in the sinus. It may be a viral illness in which case will just take its time to get better and be treated with the symptom medicines. Tessalon if needed for cough. Albuterol if needed for wheezing and asthma. Hydrocodone as needed for pains of the sinus and also the back. At this point there is no rash on the back or skin tenderness so hopefully muscular pain and not early shingles. Recheck if you do develop worsening pain there or rash. Recheck if not improved well over the next several days. Discharge Date/Time: 02/07/19 09:32
[2019-02-07 08:35] LABS: BILIRUBIN,URINE NEGATIVE (NEGATIVE); GLUCOSE, URINE (UA) NEGATIVE (NEGATIVE); KETONES,URINE (UA) NEGATIVE (NEGATIVE); LEUKOCYTE ESTERASE, URINE SMALL (NEGATIVE); NITRITE,URINE NEGATIVE (NEGATIVE); OCCULT BLOOD,URINE NEGATIVE (NEGATIVE); PROTEIN,URINE NEGATIVE (NEGATIVE); UROBILINOGEN,URINE 0.2 (NORMAL) E.U./dL (NORMAL)
[2019-02-07 08:41] LABS: CLARITY,URINE HAZY (CLEAR)
[2019-02-07 08:43] LABS: BACTERIA,URINE Many /HPF (None Seen); RBC,URINE 0-5 /HPF (0-5); SQUAMOUS EPITHELIAL CELL,UR MANY Squamous (<= Few)
[2019-02-07] MEDS ORDERED: CHERRY SYRUP 10 ML UDC PO ONE (08:58)
[2019-02-07] MEDS ORDERED: BENZONATATE 100 MG CAPSULE PO STA (08:58)
[2019-02-07] MEDS ORDERED: DEXAMETHASONE 10 MG/ML VIAL PO STA (08:58)
[2019-02-07] MEDS ORDERED: AMOXICILLIN 250 MG CAPSULE PO STA (08:58)
[2019-02-07] MEDS ORDERED: CETIRIZINE 10 MG TABLET PO STA (08:59)
== END 2019-02-07 09:32 | disposition home or self-care (01) ==
LOC: ED 08:00
DX: J01.00 Acute maxillary sinusitis, unspecified (principal); J45.21 Mild intermittent asthma with (acute) exacerbation; R10.9 Unspecified abdominal pain; I10 Essential (primary) hypertension; Z79.01 Long term (current) use of anticoagulants
CPT/HCPCS: 81001; 99283; A9270; 81003; 87086

== ENCOUNTER 2019-03-02 09:13 | Emergency (ER) | payer MEDICARE, OTHER ==
[2019-03-02 10:03] LABS: BASOPHILS # (AUTO) 0.1 10^3/uL (0.0-0.1); BASOPHILS % (AUTO) 0.6 %; EOSINOPHILS # (AUTO) 0.2 10^3/uL (0.0-0.7); EOSINOPHILS % (AUTO) 2.4 %; HGB - HEMOGLOBIN 14.5 g/dL (12.0-16.0); LYMPHOCYTES % (AUTO) 37.6 %; MEAN CORPUSCULAR HEMOGLOBIN 29.7 pg (27.0-31.0); MEAN CORPUSCULAR HGB CONC 32.8 g/dL (32.0-36.0); MEAN CORPUSCULAR VOLUME 90.6 fL (81.0-99.0); MEAN PLATELET VOLUME 9.8 fL (7.9-10.8); MONOCYTES # (AUTO) 0.7 10^3/uL (0.0-1.0); MONOCYTES % (AUTO) 8.2 %; NEUTROPHILS % (AUTO) 50.3 %; PLT - PLATELET COUNT 213 10^3/uL (130-450); RED BLOOD COUNT 4.88 10^6/uL (4.20-5.40); RED CELL DISTRIBUTION WIDTH 14.6 % (12.0-15.0)
--- NOTE | 2019-03-02 10:10 | XRAY Report ---
Reason: chest pain Procedure Date: 03/02/2019 Accession Number: [id number] / [id number] Procedure: XR - Chest 1 View X-Ray CPT Code: 19947 FULL RESULT: EXAM: CHEST RADIOGRAPHY EXAM DATE: 03/02/2019 09:45 AM. CLINICAL HISTORY: Chest pain. COMPARISON: Chest radiograph from 01/08/2019. TECHNIQUE: 1 view. FINDINGS: Lungs/Pleura: No focal airspace opacity. No pleural effusion or pneumothorax. Mediastinum: Cardiomediastinal silhouette is within normal limits. Pulmonary vasculature is unremarkable. Other: None. IMPRESSION: No acute cardiopulmonary abnormality. RADIA
[2019-03-02 10:21] LABS: ALBUMIN 4.3 g/dL (3.2-5.5); ALBUMIN/GLOBULIN RATIO 1.3 (1.0-2.2); BILIRUBIN,TOTAL 0.4 mg/dL (0.2-1.0); CALCIUM 10.2 mg/dL (8.5-10.3); CREATININE 0.8 mg/dL (0.4-1.0); TOTAL PROTEIN 7.6 g/dL (6.7-8.2)
[2019-03-02] MEDS ORDERED: LIDOCAINE VISCOUS 2% 15 ML UDC MM STA (10:40)
[2019-03-02] MEDS ORDERED: MAG HYDROX/AL HYDROX/SIMETH 30 ML UDC PO STA (10:40)
--- NOTE | 2019-03-02 10:51 | ED Physician Documentation ---
PD HPI CHEST PAIN - Stated complaint Stated Complaint: CHEST PAIN - Chief complaint Chief Complaint: Cardiac - History obtained from History obtained from: Patient - History of Present Illness Timing - onset: Enter time (629), Today Timing - onset during: Rest Timing - duration: Hours Timing - details: Abrupt onset, Still present Pain level now: 5 Quality: Pressure, Aching Location: Substernal Radiation: Neck, Back Improved by: Nothing Associated symptoms: Cough. No: Shortness of air, Diaphoresis, Nausea, Vomiting, Feeling faint / dizzy, General Weakness, Palpitations Similar symptoms before: Has not had sx before Recently seen: Emergency Dept - Additional information Additional information: 60-year-old female with a history of respiratory reactive airway and yearly URI has had her URI this year she has had some amoxicillin last month she continues to have a cough she is now developed some pain in the substernal area that radiates to her back and up into her neck. She states that this feels like there is something stuck in her esophagus. PD PAST MEDICAL HISTORY - Past Medical History Cardiovascular: Hypertension, Other Respiratory: Asthma GI: GERD, Diverticulitis : Kidney stones Psych: None Musculoskeletal: Chronic back pain Derm: None - Past Surgical History Past Surgical History: Yes General: 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, Appendectomy, Colonoscopy /[employer]ENT: Tubal ligation, 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 - Present Medications Home Medications: Ambulatory Orders Medication Instructions Recorded Confirmed Lisinopril/Hydrochlorothiazide 1 each PO DAILY 12/20/12 11/13/18 [Lisinopril-Hctz 10-12.5 mg Tab] Fluticasone 44 Mcg [Flovent] 1 inhaler IH BID PRN 04/11/15 11/13/18 Ipratropium/Albuterol [Combivent 1 puffs IH QID PRN 04/11/15 11/13/18 Respimat] Metoprolol Tartrate 25 mg PO BID 03/13/18 11/13/18 Rivaroxaban [Xarelto] 20 mg PO QDDINNER 03/13/18 11/13/18 Cyclobenzaprine HCl 5 mg PO QPM PRN 11/13/18 11/13/18 Saccharomyces Boulardii [Florastor] 250 mg PO DAILY #6 capsule 11/14/18 Ondansetron Odt [Zofran] 4 mg TL Q6H PRN #15 tablet 01/16/19 Albuterol 2.5 mg INH Q4H PRN #30 neb 02/07/19 Benzonatate [Tessalon Perle] 100 mg PO TID PRN #25 capsule 02/07/19 Azithromycin [Zithromax] 250 mg PO DAILY #6 tablet 03/02/19 Sucralfate [Carafate] 1 gm PO ACHS #60 tablet 03/02/19 - Allergies Allergies/Adverse Reactions: Allergies Allergy/AdvReac Type Severity Reaction Status Date / Time povidone-iodine Allergy Intermediate Hives Verified 02/07/19 08:09 [From Betadine] soap * [From Betadine] Allergy Intermediate Hives Verified 02/07/19 08:09 Sulfa (Sulfonamide Allergy Intermediate Hives Verified 02/07/19 08:09 Antibiotics) ciprofloxacin [From Cipro] AdvReac Rash Verified 02/07/19 08:09 metronidazole [From Flagyl] AdvReac Rash Verified 02/07/19 08:09 Flu vaccine Allergy Mild Rash Uncoded 11/12/18 19:15 - Social History Does the pt smoke?: No Smoking Status: Never smoker Does the pt drink ETOH?: No Does the pt have substance abuse?: No - Immunizations Immunizations are current?: Yes Immunizations: TDAP >10years/unknown - POLST Patient has POLST: No PD ED PE NORMAL - Vitals Vital signs reviewed: Yes (normal ) - General General: Alert and oriented X 3, No acute distress, Well developed/nourished - HEENT HEENT: Atraumatic, PERRL, Other (There is mild inflamation to both TM's worse on the right ) - Neck Neck: Supple, no meningeal sign, No bony TTP - Cardiac Cardiac: RRR, No murmur - Respiratory Respiratory: No respiratory distress, Clear bilaterally - Abdomen Abdomen: Soft, Non tender - Back Back: No CVA TTP, No spinal TTP - Derm Derm: Normal color, Warm and dry, No rash - Extremities Extremities: No deformity, No edema - Neuro Neuro: Alert and oriented X 3, 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, No motor deficit, No sensory deficit, Normal speech Eye Opening: Spontaneous Motor: Obeys Commands Verbal: Oriented GCS Score: 15 - Psych Psych: Normal mood, Normal affect Results - Vitals Vitals: Vital Signs - 24 hr 03/02/19 03/02/19 03/02/19 09:23 10:15 10:45 Temperature 36.6 C Heart Rate 83 78 83 Respiratory 18 18 20 Rate Blood Pressure 131/73 H 134/64 H 137/63 H O2 Saturation 97 95 96 03/02/19 03/02/19 11:02 11:54 Temperature Heart Rate 77 76 Respiratory 16 18 Rate Blood Pressure 111/62 126/75 O2 Saturation 95 99 Oxygen O2 Source Room air - EKG (time done) 0919 Rate: Rate (enter#) (76) Rhythm: NSR Intervals: Prolonged QT Ischemia: Q waves Compare to prior EKG: Changed from prior EKG (SPT 01-08-2019 QT interval has increased) Computer interpretation: Agree with computer - Labs Labs: Laboratory Tests 03/02/19 03/02/19 03/02/19 09:55 09:55 09:55 WBC 8.0 RBC 4.88 Hgb 14.5 Hct 44.2 MCV 90.6 MCH 29.7 MCHC 32.8 RDW 14.6 Plt Count 213 MPV 9.8 Neut # (Auto) 4.0 Lymph # (Auto) 3.0 [place] # (Auto) 0.7 Eos # (Auto) 0.2 Baso # (Auto) 0.1 Absolute Nucleated RBC 0.00 Nucleated RBC % 0.0 Sodium 142 Potassium 4.2 Chloride 102 Carbon Dioxide 32 Anion Gap 8.0 BUN 12 Creatinine 0.8 Estimated GFR (MDRD) 71 L Glucose 120 H Calcium 10.2 Total Bilirubin 0.4 AST 35 ALT 43 Alkaline Phosphatase 44 Troponin I High Sens 4.2 Total Protein 7.6 Albumin 4.3 Globulin 3.3 Albumin/Globulin Ratio 1.3 Lipase 47 - Rads (name of study) chest Radiology: Prelim report reviewed (Impression: No cardiopulmonary abnormality.), EMP read indepedently, See rad report PD MEDICAL DECISION MAKING - ED course Complexity details: reviewed results, re-evaluated patient, considered differential, d/w patient, d/w family ED course: 68-year-old female with central chest pain radiating to her back and neck has negative diagnostics and she has a improvement with use of viscous lidocaine and mylanta consistent with this being in her esophagus. She is administered Carafate in addition to Protonix intravenously. I have counseled the patient to take medications for stomach including a course of Carafate and Nexium or omeprazole for the next 2 weeks. Departure - Departure Disposition: 01 Home, Self Care Clinical Impression: GERD (gastroesophageal reflux disease) Qualifiers: Esophagitis presence: with esophagitis Qualified Code(s): K21.0 - Gastro- esophageal reflux disease with esophagitis Otitis media Qualifiers: Otitis media type: suppurative Chronicity: acute Laterality: right Recurrence: not specified as recurrent Spontaneous tympanic membrane rupture: without spontaneous rupture Qualified Code(s): H66.001 - Acute suppurative otitis media without spontaneous rupture of ear drum, right ear Condition: Stable Instructions: ED GERD, ED Otitis Media Acute Adult Follow-Up: BREA MARINA DO [Primary Care Provider] - Prescriptions: Azithromycin [Zithromax] 250 mg PO DAILY #6 tablet Sucralfate [Carafate] 1 gm PO ACHS #60 tablet
[2019-03-02] MEDS ORDERED: PANTOPRAZOLE 40 MG VIAL IVP STA (10:57)
[2019-03-02] MEDS ORDERED: SUCRALFATE 1 GM/10 ML UDC PO STA (10:57)
[2019-03-02 11:55] VITALS: BP 126/75
== END 2019-03-02 12:32 | disposition home or self-care (01) ==
LOC: ED 09:13
DX: K21.0 Gastro-esophageal reflux disease with esophagitis (principal); H66.001 Acute suppurative otitis media without spontaneous rupture of ear drum, right ear; R94.31 Abnormal electrocardiogram [ECG] [EKG]; I10 Essential (primary) hypertension; Z79.01 Long term (current) use of anticoagulants
CPT/HCPCS: 36415; 71045; 80053; 83690; 84484; 85025; 93005; 96374; 99281; 99284; A9270

== ENCOUNTER 2019-07-29 15:44 | Emergency (ER) | payer MEDICARE, OTHER ==
--- NOTE | 2019-07-29 16:03 | ED Physician Documentation ---
PD HPI BACK PAIN - Stated complaint Stated Complaint: RT SIDE PX - Chief complaint Chief Complaint: Back Pain - History obtained from History obtained from: Patient - History of Present Illness Timing - onset: Yesterday Timing - duration: Days (05/05) Timing - details: Abrupt onset (She was bending over putting something in the often that was fairly light. As she stood back up and turned to the right she noticed onset of right flank pain down to the right lower abdomen and thigh. No fall or injury. She states the pain is continued since yesterday into today and is a bit worse today. It is worsened with movement but also consistent when resting. She had recently been on antibiotics for a diverticulitis on the left side and that has been improved. She denied any dysuria. She had not noticed any hematuria. She has had a history of kidney stones in the past and states it feels somewhat similar to that.) Location: Lower, Right (flank to upper lumbar area.) Quality: Pain Associated symptoms: No: Fever, Weakness, Numbness, Incontinent of urine Worsened by: Movement (but also hurts at rest) Contributing factors: Twisting. No: Trauma, Anticoagulated Similar symptoms before: Diagnosis (Does have history of low back pain at times. Also history of kidney stones. History of diverticulitis but is not had this on the right in the past) Recently seen: Clinic (Being treated outpatient for diverticulitis with Augmentin and is on the last day of antibiotics) Review of Systems Constitutional: denies: Fever, Chills, Myalgias Nose: denies: Rhinorrhea / runny nose, Congestion Throat: denies: Sore throat Cardiac: denies: Chest pain / pressure Respiratory: denies: Cough GI: reports: Abdominal Pain, Nausea. denies: Abdominal Swelling, Vomiting, Diarrhea Skin: denies: Rash, Lesions Musculoskeletal: reports: Back pain. 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 - Present Medications Home Medications: Ambulatory Orders Medication Instructions Recorded Confirmed Lisinopril/Hydrochlorothiazide 1 each PO DAILY 12/20/12 11/13/18 [Lisinopril-Hctz 10-12.5 mg Tab] Fluticasone 44 Mcg [Flovent] 1 inhaler IH BID PRN 04/11/15 11/13/18 Ipratropium/Albuterol [Combivent 1 puffs IH QID PRN 04/11/15 11/13/18 Respimat] Metoprolol Tartrate 25 mg PO BID 03/13/18 11/13/18 Rivaroxaban [Xarelto] 20 mg PO QDDINNER 03/13/18 11/13/18 Cyclobenzaprine HCl 5 mg PO QPM PRN 11/13/18 11/13/18 Saccharomyces Boulardii [Florastor] 250 mg PO DAILY #6 capsule 11/14/18 Ondansetron Odt [Zofran] 4 mg TL Q6H PRN #15 tablet 01/16/19 Albuterol 2.5 mg INH Q4H PRN #30 neb 02/07/19 Benzonatate [Tessalon Perle] 100 mg PO TID PRN #25 capsule 02/07/19 Azithromycin [Zithromax] 250 mg PO DAILY #6 tablet 03/02/19 Sucralfate [Carafate] 1 gm PO ACHS #60 tablet 03/02/19 Hydrocodone/Acetaminophen [[place] 1 each PO Q6H PRN #20 tablet 07/29/19 7.5-325 Tablet] dexAMETHasone [Decadron] 4 mg PO DAILY #5 tablet 07/29/19 - Allergies Allergies/Adverse Reactions: Allergies Allergy/AdvReac Type Severity Reaction Status Date / Time povidone-iodine Allergy Intermediate Hives Verified 07/29/19 15:52 [From Betadine] soap * [From Betadine] Allergy Intermediate Hives Verified 07/29/19 15:52 Sulfa (Sulfonamide Allergy Intermediate Hives Verified 07/29/19 15:52 Antibiotics) ciprofloxacin [From Cipro] AdvReac Rash Verified 07/29/19 15:52 metronidazole [From Flagyl] AdvReac Rash Verified 07/29/19 15:52 Flu vaccine Allergy Mild Rash Uncoded 07/29/19 15:52 - Social History Does the pt smoke?: No Smoking Status: Never smoker Does the pt drink ETOH?: No Does the pt have substance abuse?: No - Immunizations Immunizations are current?: Yes Immunizations: TDAP >10years/unknown - POLST Patient has POLST: No PD ED PE NORMAL - Vitals Vital signs reviewed: Yes - General General: Alert and oriented X 3, No acute distress, Well developed/nourished - HEENT HEENT: Pharynx benign - Neck Neck: Supple, no meningeal sign, No adenopathy - Cardiac Cardiac: RRR, No murmur - Respiratory Respiratory: Clear bilaterally - Abdomen Abdomen: Normal bowel sounds, Soft, Non distended, Other (There is some tenderness in the right upper paralumbar muscles but also the right CVA area. Some tenderness to the right lower quadrant without any focal guarding nor percussion tenderness.) - Female Female : Deferred - Rectal Rectal: Deferred - Derm Derm: Normal color, Warm and dry, No rash - Extremities Extremities: No deformity, No tenderness to palpate, Normal ROM s pain, No edema, No calf tenderness / cord - Neuro Neuro: Alert and oriented X 3, No motor deficit, Normal speech Results - Vitals Vitals: Vital Signs - 24 hr 07/29/19 17:47 Heart Rate 77 Respiratory 15 Rate Blood Pressure 121/54 L O2 Saturation 95 Oxygen O2 Source Room air - Labs Labs: Laboratory Tests 07/29/19 17:15 Urine Color YELLOW Urine Clarity CLEAR Urine pH 6.5 Ur Specific [place] 1.020 Urine Protein NEGATIVE Urine Glucose (UA) NEGATIVE Urine Ketones NEGATIVE Urine Occult Blood NEGATIVE Urine Nitrite NEGATIVE Urine Bilirubin NEGATIVE Urine Urobilinogen 0.2 (NORMAL) Ur Leukocyte Esterase NEGATIVE Ur Microscopic Review NOT INDICATED Urine Culture Comments NOT INDICATED - Rads (name of study) KUB CT Radiology: Prelim report reviewed (no stones nor acute process), See rad report PD MEDICAL DECISION MAKING - ED course Complexity details: reviewed results (No signs of kidney stones. Diverticula without any diverticulitis. This seems to be resolution of her prior diverticulitis. I presume musculoskeletal pain at this point. No rash or skin tenderness to suggest infectious cause though the pain just started yesterday. Advised her to watch for rash fevers or other symptoms that would not correlate with musculoskeletal pain.), considered differential, d/w patient Departure - Departure Disposition: 01 Home, Self Care Clinical Impression: Acute right flank pain Low back strain Qualifiers: Encounter type: initial encounter Qualified Code(s): S39.012A - Strain of muscle, fascia and tendon of lower back, initial encounter Condition: Stable Record reviewed to determine appropriate education?: Yes Instructions: ED Spasm Back No Trauma Follow-Up: BREA MARINA DO [Primary Care Provider] - Prescriptions: dexAMETHasone [Decadron] 4 mg PO DAILY #5 tablet Hydrocodone/Acetaminophen [[place] 7.5-325 Tablet] 1 each PO Q6H PRN #20 tablet PRN Reason: Pain Comments: Stay well-hydrated. Heat and gentle stretching and range of motion for the back. Your CT did not show any signs of stones or obvious vertebral problems. Your urine test appeared normal. At this point I presume its spasm or inflammation of the muscles and ligaments in the back with perhaps some nerve irritation. Use Decadron steroid anti-inflammatory daily for 5 more days. This will not interfere with your blood thinner. Use your Flexeril at home 2-3 times a day for the next 5 to 6 days for stiffness and spasms. Add Tylenol or hydrocodone as needed for pain. Recheck if not improving well over the next several days and return if other symptoms develop or worsening pain overall. Discharge Date/Time: 07/29/19 17:55
[2019-07-29] MEDS ORDERED: KETOROLAC 60 MG/2 ML VIAL IM STA (16:23)
[2019-07-29] MEDS ORDERED: HYDROmorphone 1 MG/ML CARPUJECT IM STA (16:23)
--- NOTE | 2019-07-29 17:00 | CT Report ---
Reason: right flank/abd pain abrupt today Procedure Date: 07/29/2019 Accession Number: [id number] / [id number] Procedure: CT - Abdomen/Pelvis WO CPT Code: Final Report FULL RESULT: EXAM: CT ABDOMEN AND PELVIS (CT KUB) EXAM DATE: 07/29/2019 04:39 PM. CLINICAL HISTORY: Right flank/abd pain abrupt today. COMPARISONS: ABDOMEN/PELVIS W/O 10/21/2018 8:53 PM. TECHNIQUE: Routine axial helical CT imaging was performed through the abdomen and pelvis without IV contrast. Reconstructions: Coronal and sagittal. In accordance with CT protocol optimization, one or more of the following dose reduction techniques were utilized for this exam: automated exposure control, adjustment of mA and/or KV based on patient size, or use of iterative reconstructive technique. FINDINGS: Lung Bases: Unremarkable. Right Kidney/Ureter: No stones, hydronephrosis, or hydroureter. No perinephric fat stranding. Left Kidney/Ureter: No stones, hydronephrosis, or hydroureter. No perinephric fat stranding. Other Solid Organs: Hepatic steatosis. Gallbladder/Bile Ducts: 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. Peritoneal Cavity: Incidental splenule. Colonic diverticulosis. Pelvic Organs: Underdistended bladder. No bladder calculus. 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. No adnexal mass. Vasculature: Unremarkable. Other: Periumbilical and pelvic wall scarring. IMPRESSION: 1. No urinary tract stones or obstruction. 2. Hepatic steatosis. 3. Colonic diverticulosis. 4. 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 and hysterectomy RADIA
[2019-07-29] MEDS ORDERED: HYDROmorphone 2 MG/ML VIAL IM STA (17:19)
[2019-07-29 17:22] LABS: BILIRUBIN,URINE NEGATIVE (NEGATIVE); GLUCOSE, URINE (UA) NEGATIVE (NEGATIVE); KETONES,URINE (UA) NEGATIVE (NEGATIVE); LEUKOCYTE ESTERASE, URINE NEGATIVE (NEGATIVE); NITRITE,URINE NEGATIVE (NEGATIVE); OCCULT BLOOD,URINE NEGATIVE (NEGATIVE); PH,URINE 6.5 PH (5.0-7.5); PROTEIN,URINE NEGATIVE (NEGATIVE); UROBILINOGEN,URINE 0.2 (NORMAL) E.U./dL (NORMAL)
[2019-07-29 17:30] LABS: CLARITY,URINE CLEAR (CLEAR)
[2019-07-29 17:47] VITALS: BP 121/54
== END 2019-07-29 17:55 | disposition home or self-care (01) ==
LOC: ED 15:44
DX: R10.9 Unspecified abdominal pain (principal); S39.012A Strain of muscle, fascia and tendon of lower back, initial encounter; X50.9XXA Other and unspecified overexertion or strenuous movements or postures, initial encounter; Y93.G3 Activity, cooking and baking; Y92.000 Kitchen of unspecified non-institutional (private) residence as the place of occurrence of the external cause; I10 Essential (primary) hypertension
CPT/HCPCS: 74176; 81003; 96372; 99284; J1170; 81001; 87086

== ENCOUNTER 2019-10-01 08:23 | Emergency (ER) | payer MEDICARE, OTHER ==
[2019-10-01 08:35] VITALS: BP 124/67
--- NOTE | 2019-10-01 08:43 | ED Physician Documentation ---
PD HPI UPPER EXT INJURY - Stated complaint Stated Complaint: R HAND LAC - Chief complaint Chief Complaint: Laceration - History obtained from History obtained from: Patient - History of Present Illness Location: Right, Finger (ring finger tip avulsion at home with sharp object.) Type of injury: Laceration Where injury occurred: Home Timing - onset: Today Associated symptoms: Other (the wound would not stop bleeding, even after direct pressure.). No: Weakness, Numbness Recently seen: Not recently seen Review of Systems Constitutional: denies: Fever, Chills Nose: denies: Rhinorrhea / runny nose, Congestion Throat: denies: Sore throat Respiratory: denies: Cough Skin: reports: Laceration (s) Neurologic: denies: Focal weakness, Numbness PD PAST MEDICAL HISTORY - Past Medical History Past Medical History: Yes Cardiovascular: Hypertension, Other Respiratory: Asthma GI: GERD, Diverticulitis : Kidney stones Psych: None Musculoskeletal: Chronic back pain Derm: None - Past Surgical History Past Surgical History: Yes General: 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, Appendectomy, Colonoscopy, 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, 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 - Present Medications Home Medications: Ambulatory Orders Medication Instructions Recorded Confirmed Lisinopril/Hydrochlorothiazide 1 each PO DAILY 12/20/12 11/13/18 [Lisinopril-Hctz 10-12.5 mg Tab] Fluticasone 44 Mcg [Flovent] 1 inhaler IH BID PRN 04/11/15 11/13/18 Ipratropium/Albuterol [Combivent 1 puffs IH QID PRN 04/11/15 11/13/18 Respimat] Metoprolol Tartrate 25 mg PO BID 03/13/18 11/13/18 Rivaroxaban [Xarelto] 20 mg PO QDDINNER 03/13/18 11/13/18 Cyclobenzaprine HCl 5 mg PO QPM PRN 11/13/18 11/13/18 Saccharomyces Boulardii [Florastor] 250 mg PO DAILY #6 capsule 11/14/18 Ondansetron Odt [Zofran] 4 mg TL Q6H PRN #15 tablet 01/16/19 Albuterol 2.5 mg INH Q4H PRN #30 neb 02/07/19 - Allergies Allergies/Adverse Reactions: Allergies Allergy/AdvReac Type Severity Reaction Status Date / Time povidone-iodine Allergy Intermediate Hives Verified 10/01/19 08:36 [From Betadine] soap * [From Betadine] Allergy Intermediate Hives Verified 10/01/19 08:36 Sulfa (Sulfonamide Allergy Intermediate Hives Verified 10/01/19 08:36 Antibiotics) ciprofloxacin [From Cipro] AdvReac Rash Verified 10/01/19 08:36 metronidazole [From Flagyl] AdvReac Rash Verified 10/01/19 08:36 Flu vaccine Allergy Mild Rash Uncoded 10/01/19 08:36 - Social History Does the pt smoke?: No Smoking Status: Never smoker Does the pt drink ETOH?: No Does the pt have substance abuse?: No - Immunizations Immunizations are current?: Yes Immunizations: TDAP >10years/unknown - POLST Patient has POLST: No PD ED PE NORMAL - Vitals Vital signs reviewed: Yes - General General: Alert and oriented X 3, No acute distress, Well developed/nourished - Derm Derm: Normal color, Warm and dry - Extremities Extremities: Other (right ring finger tip with 1/2 cm rounded avulsion without FB but with brisk capillary bleeding at base. Does not involve nailbed. ) Results - Vitals Vitals: Oxygen O2 Source Room air PD MEDICAL DECISION MAKING - ED course Complexity details: considered differential (local anesth with lido 2% then cleansed and battery cautery used to burn the vessels. Bleeding stopped. Steri strips applied over for covering. ), d/w patient Departure - Departure Disposition: 01 Home, Self Care Clinical Impression: Fingertip avulsion Qualifiers: Encounter type: initial encounter Qualified Code(s): S61.209A - Unspecified open wound of unspecified finger without damage to nail, initial encounter Condition: Stable Record reviewed to determine appropriate education?: Yes Instructions: ED Avulsion Dermal Follow-Up: BREA MARINA DO [Primary Care Provider] - Comments: Leave the initial bandage on until tomorrow. If it bleeds a little bit, just apply direct pressure and see if it stops. Starting tomorrow, assume normal wound care cleaning with soap and water and applying ointment and bandaging as needed. Recheck if signs of infection otherwise this should heal over a week or 2 Discharge Date/Time: 10/01/19 09:35
[2019-10-01] MEDS ORDERED: LIDOCAINE 2% 50 ML MDV SUBQ STA (08:54)
[2019-10-01] MEDS ORDERED: LIDOCAINE 1% 2 ML VIAL SUBQ STA (08:57)
== END 2019-10-01 09:35 | disposition home or self-care (01) ==
LOC: ED 08:23
DX: S61.204A Unspecified open wound of right ring finger without damage to nail, initial encounter (principal); W26.9XXA Contact with unspecified sharp object(s), initial encounter; Y92.009 Unspecified place in unspecified non-institutional (private) residence as the place of occurrence of the external cause; I10 Essential (primary) hypertension
CPT/HCPCS: 99283

== ENCOUNTER 2019-10-13 15:26 | Emergency (ER) | payer MEDICARE, OTHER ==
[2019-10-13 15:33] VITALS: BP 149/82
--- NOTE | 2019-10-13 15:42 | ED Physician Documentation ---
PD HPI UPPER EXT INJURY - Stated complaint Stated Complaint: LT INDEX FINGER LAC - Chief complaint Chief Complaint: Laceration - History obtained from History obtained from: Patient - History of Present Illness Location: Left, Finger Type of injury: Other (laceration) Where injury occurred: Home Timing - onset: How many minutes ago (120) Improved by: Dressing Worsened by: Moving Associated symptoms: No: Weakness, Numbness, Tingling Contributing factors: Anticoagulated Similar symptoms before: Has not had sx before - Additonal information Additional information: 69-year-old female presents to the emergency department with a left index finger laceration that occurred about 2 hours ago. She was cutting vegetables at home and has an approximately 1 cm laceration at the MCP joint of her left index finger on the medial side.Patient is on Xarelto. However bleeding is controlled with pressure.Tetanus is up-to-date. Review of Systems Constitutional: denies: Fever, Chills Nose: reports: Reviewed and negative Throat: reports: Reviewed and negative Cardiac: reports: Reviewed and negative GI: reports: Reviewed and negative. denies: Abdominal Pain Skin: reports: Laceration (s) Musculoskeletal: reports: Joint pain. 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 - Present Medications Home Medications: Ambulatory Orders Medication Instructions Recorded Confirmed Lisinopril/Hydrochlorothiazide 1 each PO DAILY 12/20/12 11/13/18 [Lisinopril-Hctz 10-12.5 mg Tab] Fluticasone 44 Mcg [Flovent] 1 inhaler IH BID PRN 04/11/15 11/13/18 Ipratropium/Albuterol [Combivent 1 puffs IH QID PRN 04/11/15 11/13/18 Respimat] Metoprolol Tartrate 25 mg PO BID 03/13/18 11/13/18 Rivaroxaban [Xarelto] 20 mg PO QDDINNER 03/13/18 11/13/18 Cyclobenzaprine HCl 5 mg PO QPM PRN 11/13/18 11/13/18 Saccharomyces Boulardii [Florastor] 250 mg PO DAILY #6 capsule 11/14/18 Ondansetron Odt [Zofran] 4 mg TL Q6H PRN #15 tablet 01/16/19 Albuterol 2.5 mg INH Q4H PRN #30 neb 02/07/19 - Allergies Allergies/Adverse Reactions: Allergies Allergy/AdvReac Type Severity Reaction Status Date / Time povidone-iodine Allergy Intermediate Hives Verified 10/13/19 15:30 [From Betadine] soap * [From Betadine] Allergy Intermediate Hives Verified 10/13/19 15:30 Sulfa (Sulfonamide Allergy Intermediate Hives Verified 10/13/19 15:30 Antibiotics) ciprofloxacin [From Cipro] AdvReac Rash Verified 10/13/19 15:30 metronidazole [From Flagyl] AdvReac Rash Verified 10/13/19 15:30 Flu vaccine Allergy Mild Rash Uncoded 10/13/19 15:30 - Social History Does the pt smoke?: No Smoking Status: Never smoker Does the pt drink ETOH?: No Does the pt have substance abuse?: No - Immunizations Immunizations are current?: Yes Immunizations: TDAP >10years/unknown - POLST Patient has POLST: No PD ED PE EXPANDED - General General: Alert, No acute distress, Well developed/nourished - Extremities Extremities: Other (1 cm laceration on the medial side of the left index finger at MCP.Normal flexion and extension against resistance at all joints. No loss of sensation. Brisk cap refill.) Results - Vitals Vitals: Vital Signs - 24 hr 10/13/19 15:30 Temperature 36.5 C Heart Rate 108 H Respiratory 16 Rate Blood Pressure 149/82 H O2 Saturation 96 Oxygen O2 Source Room air Procedures - Laceration (location) left index finger Wound type: Linear Neurovascular status: Sensory intact, Motor intact, Vascular intact Tendon involvement: Tendon intact. No: Tendon Injury Wound Preparation: Other (irrigated with 60 ml of normal saline) Skin layer closure: Dermabond Other: Patient tolerated well, No complications, Neurovascular intact, Dressing applied, Other (aluminum finger splint given) Complexity: Simple PD MEDICAL DECISION MAKING - ED course Complexity details: re-evaluated patient, d/w patient ED course: 69-year-old female presents to the emergency department for evaluation of a left index finger sustained this afternoon when cutting vegetables in her kitchen. - The laceration is approximately 1 cm and on the MCP. However there is no evidence of joint capsule involvement. She is on Xarelto but bleeding is easily controlled with pressure. - tetanus is UTD (2014) - Wound was easily closed with Dermabond. Though it is over a joint the laceration was very linear and superficial. She was given an aluminum splint to help prevent flexure at the MCP joint while the laceration heals. - Given timely closure will defer any prophylactic antibiotics. - Return precautions discussed for concerns of wound infection. Departure - Departure Disposition: 01 Home, Self Care Clinical Impression: Laceration of finger Qualifiers: Encounter type: initial encounter Finger: index finger Damage to nail status: without damage Foreign body presence: without foreign body Laterality: left Qualified Code(s): S61.211A - Laceration without foreign body of left index finger without damage to nail, initial encounter Condition: Stable Record reviewed to determine appropriate education?: Yes Instructions: ED Laceration Ext Skin Glue Comments: Mandy the laceration on your index finger was small and appeared quite superficial. Therefore we chose to close it with glue or Dermabond. Please continue to wear the finger splint for the next 4 to 5 days to make sure that you do not flex your finger at the joint. The glue should wear away on its own. If you develop finger redness swelling have fevers or red streaking then please return to the emergency department for reevaluation and consideration of antibiotics. Your tetanus does not need to be updated today it was last given to you in 2015.
== END 2019-10-13 16:16 | disposition home or self-care (01) ==
LOC: ED 15:26
DX: S61.211A Laceration without foreign body of left index finger without damage to nail, initial encounter (principal); W26.0XXA Contact with knife, initial encounter; Y93.G1 Activity, food preparation and clean up; Y92.000 Kitchen of unspecified non-institutional (private) residence as the place of occurrence of the external cause; I10 Essential (primary) hypertension; Z79.01 Long term (current) use of anticoagulants
CPT/HCPCS: 12001; 99281; 99282

== ENCOUNTER 2020-01-19 13:15 | Outpatient (CLI) | payer MEDICARE, OTHER | END 2020-01-19 13:16 | disposition critical access hospital (66) | LOC: EMS 13:15 | PROVIDERS: ATTEND Surgery | DX: R07.89 Other chest pain (principal); R61 Generalized hyperhidrosis; R42 Dizziness and giddiness; R11.0 Nausea; R06.02 Shortness of breath | CPT/HCPCS: A0425; A0427 ==

== ENCOUNTER 2020-02-12 10:00 | Emergency (ER) | payer MEDICARE, OTHER ==
[2020-02-12 10:10] VITALS: BP 136/71
--- NOTE | 2020-02-12 10:14 | ED Physician Documentation ---
PD HPI OPHTHO - Stated complaint Stated Complaint: PX LT EYE - Chief complaint Chief Complaint: Heent - History obtained from History obtained from: Patient - History of Present Illness Timing - onset: How many days ago (2-3) Timing - duration: Days Timing - details: Gradual onset, Still present Location: Left Associated symptoms: Redness, Tearing, Matting, Other (periorbital pressure and some nasal discharge. No change vision.). No: Discharge, FB sensation, Photophobia, Loss of vision Contributing factors: No: Exposed to conjunctivitis, Recent URI, Wears contacts Similar symptoms before: Has not had sx before Recently seen: Not recently seen Review of Systems Eyes: denies: Loss of vision, Decreased vision, Photophobia Nose: reports: Rhinorrhea / runny nose, Sinus pressure / pain (left periorbital and maxillary.). 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 - Present Medications Home Medications: Ambulatory Orders Medication Instructions Recorded Confirmed Lisinopril/Hydrochlorothiazide 1 each PO DAILY 12/20/12 11/13/18 [Lisinopril-Hctz 10-12.5 mg Tab] Fluticasone 44 Mcg [Flovent] 1 inhaler IH BID PRN 04/11/15 11/13/18 Ipratropium/Albuterol [Combivent 1 puffs IH QID PRN 04/11/15 11/13/18 Respimat] Metoprolol Tartrate 25 mg PO BID 03/13/18 11/13/18 Rivaroxaban [Xarelto] 20 mg PO QDDINNER 03/13/18 11/13/18 Cyclobenzaprine HCl 5 mg PO QPM PRN 11/13/18 11/13/18 Saccharomyces Boulardii [Florastor] 250 mg PO DAILY #6 capsule 11/14/18 Ondansetron Odt [Zofran] 4 mg TL Q6H PRN #15 tablet 01/16/19 Albuterol 2.5 mg INH Q4H PRN #30 neb 02/07/19 Doxycycline Monohydrate 100 mg PO BID #14 tablet 02/12/20 Rodrick/Polymyx B Sulf/Dexameth 2 drops LEFTEYE QID 4 Days #1 02/12/20 [Trvyos-Ggskk-Tggvxkhj Eye Drop] bottle - Allergies Allergies/Adverse Reactions: Allergies Allergy/AdvReac Type Severity Reaction Status Date / Time povidone-iodine Allergy Intermediate Hives Verified 02/12/20 10:10 [From Betadine] soap * [From Betadine] Allergy Intermediate Hives Verified 02/12/20 10:10 Sulfa (Sulfonamide Allergy Intermediate Hives Verified 02/12/20 10:10 Antibiotics) ciprofloxacin [From Cipro] AdvReac Rash Verified 02/12/20 10:10 metronidazole [From Flagyl] AdvReac Rash Verified 02/12/20 10:10 Flu vaccine Allergy Mild Rash Uncoded 02/12/20 10:10 - Social History Does the pt smoke?: No Smoking Status: Never smoker Does the pt drink ETOH?: No Does the pt have substance abuse?: No - Immunizations Immunizations are current?: Yes Immunizations: TDAP >10years/unknown - POLST Patient has POLST: No PD ED PE NORMAL - Vitals Vital signs reviewed: Yes - General General: Alert and oriented X 3, No acute distress, Well developed/nourished - HEENT HEENT: PERRL, EOMI, Ears normal, Pharynx benign, Other (some conjuunctival redness left eye lower, without current discharge. ) - Neck Neck: Supple, no meningeal sign, No adenopathy - Cardiac Cardiac: RRR, No murmur - Respiratory Respiratory: Clear bilaterally Results - Vitals Vitals: Vital Signs - 24 hr 02/12/20 10:05 Temperature 36.9 C Heart Rate 69 Respiratory 18 Rate Blood Pressure 136/71 H O2 Saturation 96 Oxygen O2 Source Room air PD MEDICAL DECISION MAKING - ED course Complexity details: considered differential (eye discharge from medial area and has sinus pressure/symptoms. ), d/w patient Departure - Departure Disposition: 01 Home, Self Care Clinical Impression: Conjunctivitis Qualifiers: Conjunctivitis type: acute Acute conjunctivitis type: bacterial Laterality: left Qualified Code(s): H10.32 - Unspecified acute conjunctivitis, left eye Sinusitis, acute Qualifiers: Sinusitis location: sphenoidal Recurrence: non-recurrent Qualified Code(s): J01.30 - Acute sphenoidal sinusitis, unspecified Condition: Stable Record reviewed to determine appropriate education?: Yes Instructions: ED Conjunctivitis Bacterial, ED Sinusitis Abx Tx Follow-Up: BREA MARINA, [Primary Care Provider] - Prescriptions: Doxycycline Monohydrate 100 mg PO BID #14 tablet Rodrick/Polymyx B Sulf/Dexameth [Oblkgk-Gocbx-[place] Eye Drop] 2 drops LEFTEYE QID 4 Days #1 bottle Comments: It sounds like some infection in the sinus as well as the eye so we will use antibiotic eyedrops as well as some oral antibiotics as directed. Continue usual medications including Nasacort and loratadine. The antibiotics chosen will not interfere with your flecainide. Recheck if not improved well over the next 2 to 3 days and resolved within 3 to 5 days. Discharge Date/Time: 02/12/20 10:50
[2020-02-12] MEDS ORDERED: DOXYCYCLINE 100 MG TABLET PO STA (10:35)
== END 2020-02-12 10:50 | disposition home or self-care (01) ==
LOC: ED 10:00
DX: H10.32 Unspecified acute conjunctivitis, left eye (principal); J01.30 Acute sphenoidal sinusitis, unspecified; I10 Essential (primary) hypertension; Z79.01 Long term (current) use of anticoagulants
CPT/HCPCS: 99282; 99284; A9270

== ENCOUNTER 2020-05-22 13:52 | Emergency (ER) | payer MEDICARE, OTHER ==
[2020-05-22 14:07] VITALS: BP 131/58
[2020-05-22] MEDS ORDERED: HYDROcod/ACETAM 5/325 MG TABLET PO STA (14:12)
[2020-05-22] MEDS ORDERED: AMOX/CLAV 875 MG/125 MG TABLET PO STA (14:12)
--- NOTE | 2020-05-22 14:15 | ED Physician Documentation ---
History of Present Illness - Stated complaint Stated Complaint: ABDOMINAL PX - Chief complaint Chief Complaint: Abd Pain - History obtained from History obtained from: Patient - History of Present Illness Timing: How many days ago (3) Pain level max: 5 Pain level now: 4 - Additonal information Additional information: Patient is a 70-year-old female who presents to the emergency department complaining of abdominal pain. She states this is very similar to her past episodes of diverticulitis. Has never had a perforation or abscess. No fevers. Nothing makes it better or worse. She has had diarrhea as well. No blood in the stool. Lower quadrant and suprapubic area. 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 : Kidney stones HEENT: None Psych: None Musculoskeletal: Chronic back pain Derm: None - Past Surgical History Past Surgical History: Yes General: 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, Appendectomy, Colonoscopy, EGD /PREVENTIVE MAINTENANCE ENGINEER: Tubal ligation, 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 - Present Medications Home Medications: Ambulatory Orders Medication Instructions Recorded Confirmed Lisinopril/Hydrochlorothiazide 1 each PO DAILY 12/20/12 11/13/18 [Lisinopril-Hctz 10-12.5 mg Tab] Fluticasone 44 Mcg [Flovent] 1 inhaler IH BID PRN 04/11/15 11/13/18 Ipratropium/Albuterol [Combivent 1 puffs IH QID PRN 04/11/15 11/13/18 Respimat] Metoprolol Tartrate 25 mg PO BID 03/13/18 11/13/18 Rivaroxaban [Xarelto] 20 mg PO QDDINNER 03/13/18 11/13/18 Cyclobenzaprine HCl 5 mg PO QPM PRN 11/13/18 11/13/18 Saccharomyces Boulardii [Florastor] 250 mg PO DAILY #6 capsule 11/14/18 Ondansetron Odt [Zofran] 4 mg TL Q6H PRN #15 tablet 09/15/19 Albuterol 2.5 mg INH Q4H PRN #30 neb 02/07/19 Doxycycline Monohydrate 100 mg PO BID #14 tablet 02/12/20 Rodrick/Polymyx B Sulf/Dexameth 2 drops LEFTEYE QID 4 Days #1 02/12/20 [Bakxir-Idjyx-Zcpxtpjs Eye Drop] bottle Amox/Clav 875/125 [Augmentin] 1 each PO Q8H #30 tablet 05/22/20 HYDROcod/ACETAM 5/325 [[place] 5/325] 1 - 2 ea PO Q6H PRN #14 tablet 05/22/20 - Allergies Allergies/Adverse Reactions: Allergies Allergy/AdvReac Type Severity Reaction Status Date / Time povidone-iodine Allergy Intermediate Hives Verified 05/22/20 13:55 [From Betadine] soap * [From Betadine] Allergy Intermediate Hives Verified 05/22/20 13:55 Sulfa (Sulfonamide Allergy Intermediate Hives Verified 05/22/20 13:55 Antibiotics) ciprofloxacin [From Cipro] AdvReac Rash Verified 05/22/20 13:55 metronidazole [From Flagyl] AdvReac Rash Verified 05/22/20 13:55 Flu vaccine Allergy Mild Rash Uncoded 02/12/20 10:10 - Social History Does the pt smoke?: No Smoking Status: Never smoker Does the pt drink ETOH?: No Does the pt have substance abuse?: No - Immunizations Immunizations are current?: Yes Immunizations: TDAP >10years/unknown - POLST Patient has POLST: No PD ED PE NORMAL - Vitals Vital signs reviewed: Yes - General General: Alert and oriented X 3, No acute distress, Well developed/nourished - HEENT HEENT: Moist mucous membranes - Neck Neck: Supple, no meningeal sign - Cardiac Cardiac: RRR, Strong equal pulses - Respiratory Respiratory: No respiratory distress, Clear bilaterally - Abdomen Abdomen: Normal bowel sounds, Soft, Non distended, Other (Tender to palpation left lower quadrant and suprapubic. No peritoneal signs) - Derm Derm: Warm and dry - Neuro Neuro: Alert and oriented X 3 - Psych Psych: Normal mood, Normal affect Results - Vitals Vitals: Vital Signs - 24 hr 05/22/20 13:55 Temperature 36.5 C Heart Rate 76 Respiratory 18 Rate Blood Pressure 131/58 H O2 Saturation 98 Oxygen O2 Source Room air PD MEDICAL DECISION MAKING - ED course Complexity details: reviewed old records, considered differential, d/w patient ED course: 70-year-old female with a history of recurrent diverticulitis presents to the emergency department with abdominal pain today that is similar to her past episodes of diverticulitis. No fevers. We discussed lab work and CT scan, patient declines this and states she would like to trial herself on pain medication and antibiotics first. If she fails to improve over the next 24 hours, she will return to the ER for laboratory testing and CT scan. Patient is well-appearing, nontoxic. Afebrile. No peritoneal signs on palpation of the abdomen. Patient counseled regarding signs and symptoms for which I believe and urgent re-evaluation would be necessary. Patient with good understanding of and agreement to plan and is comfortable going home at this time This document was made in part using voice recognition software. While efforts are made to proofread this document, sound alike and grammatical errors may occur. Departure - Departure Disposition: 01 Home, Self Care Clinical Impression: Diverticulitis Condition: Good Instructions: ED Diverticulitis Follow-Up: BREA MARINA DO [Primary Care Provider] - Within 1 week Prescriptions: Amox/Clav 875/125 [Augmentin] 1 each PO Q8H #30 tablet HYDROcod/ACETAM 5/325 [[place] 5/325] 1 - 2 ea PO Q6H PRN #14 tablet PRN Reason: Pain Comments: Take all antibiotics until gone. Return if you worsen. As we discussed if you fail to improve as expected on the antibiotics, you need to return to the emergency department for laboratory testing and CT scan to ensure there is no perforation or abscess. Otherwise if you improve as expected, follow-up with your doctor. Do not drink alcohol or drive while on narcotic pain medicine. Note that many narcotic pain relievers also contain tylenol/acetaminophen. Please ensure that your total dose of acetaminophen from all sources does not exceed 3 grams (3000mg) per day. You may constipated on this medication, take a stool softener such as "Colace" twice a day while you are on it. Also recommend a ktyn-uld-sqpevog laxative such as senna or MiraLAX any day that you do not have a bowel movement. If you received narcotic pain medication in the emergency department, do not drive or operate machinery for the next 24 hours.
== END 2020-05-22 14:26 | disposition home or self-care (01) ==
LOC: ED 13:52
DX: K57.92 Diverticulitis of intestine, part unspecified, without perforation or abscess without bleeding (principal); I10 Essential (primary) hypertension
CPT/HCPCS: 99282; 99284; A9270

== ENCOUNTER 2022-04-02 08:45 | Emergency (ER) | payer MEDICARE, OTHER ==
[2022-04-02 08:56] VITALS: BP 139/55
--- NOTE | 2022-04-02 09:37 | XRAY Report ---
PROCEDURE: Ankle 3 View LT INDICATIONS: fall/bruising TECHNIQUE: 3 views of the ankle were acquired. COMPARISON: None FINDINGS: Bones: No displaced fracture. Ankle mortise is overall intact. Possible small age-indeterminate avuls ion fragments adjacent to the medial and lateral malleoli. Plantar calcaneal enthesopathy. Soft tissues: Soft tissue swelling around the ankle. IMPRESSION: Possible small avulsion age-indeterminate bone fragments adjacent to the malleoli. Correlate for poin t tenderness. Otherwise no displaced fracture. There is soft tissue swelling. If there is high concer n for further derangement, consider MRI evaluation. Reviewed by: Rajendra Mccray MD on 04/02/2022 9:36 AM PST Approved by: Rajendra Mccray MD on 04/02/2022 9:36 AM PST Station ID: [id number]
--- NOTE | 2022-04-02 09:38 | XRAY Report ---
PROCEDURE: Tib/Fib LT INDICATIONS: fall/bruising TECHNIQUE: 2 views of the tibia and fibula were acquired. COMPARISON: None FINDINGS: Bones: No fractures or dislocations. No suspicious bony lesions. Soft tissues: No suspicious soft tissue calcifications or masses. IMPRESSION: No displaced fracture or dislocation. If there is high concern for occult injury, consider repeat rad iography or cross-sectional imaging. Reviewed by: Rajendra Mccray MD on 04/02/2022 9:37 AM PST Approved by: Rajendra Mccray MD on 04/02/2022 9:37 AM PST Station ID: [id number]
--- NOTE | 2022-04-02 10:13 | ED Physician Documentation ---
PD HPI LOWER EXT INJURY - Stated complaint Stated Complaint: LT LEG PX - Chief complaint Chief Complaint: Ext Problem - History obtained from History obtained from: Patient - Additional information Additional information: Patient is a 71-year-old female with a history of atrial fibrillation (on Xarelto) presenting for evaluation of pain, bruising and swelling to the left lower leg that has been present for 3 weeks. Patient reports tripping and striking her leg against her granddaughters wooden rocking horse. Since that time she has had continued pain and bruising to the site. She has also noticed in the last several days that the swelling has spread downwards towards her ankle.She was seen recently at [facility] for other reasons but did not have her leg evaluated at that time.She denies other injuries other than the initial 1 3 weeks ago. She denies fever, chest pain, difficulty breathing, abdominal pain. She has been using acetaminophen and ice to the area. She elevates it at night but during the daytime does note. She has been able to ambulate at her baseline. 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 : Kidney stones HEENT: None Psych: None Musculoskeletal: Chronic back pain Derm: None - Past Surgical History Past Surgical History: Yes General: 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, Appendectomy, Colonoscopy, EGD /ONLINE MARKETING ANALYST: Tubal ligation, 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 - Present Medications Home Medications: Ambulatory Orders Medication Instructions Recorded Confirmed Lisinopril/Hydrochlorothiazide 1 each PO DAILY 12/20/12 11/13/18 [Lisinopril-Hctz 10-12.5 mg Tab] Fluticasone 44 Mcg [Flovent] 1 inhaler IH BID PRN 04/11/15 11/13/18 Ipratropium/Albuterol [Combivent 1 puffs IH QID PRN 04/11/15 11/13/18 Respimat] Metoprolol Tartrate 25 mg PO BID 03/13/18 11/13/18 Rivaroxaban [Xarelto] 20 mg PO QDDINNER 03/13/18 11/13/18 Cyclobenzaprine HCl 5 mg PO QPM PRN 11/13/18 11/13/18 Saccharomyces Boulardii [Florastor] 250 mg PO DAILY #6 capsule 11/14/18 Ondansetron Odt [Zofran] 4 mg TL Q6H PRN #15 tablet 01/16/19 Albuterol 2.5 mg INH Q4H PRN #30 neb 02/07/19 Doxycycline Monohydrate 100 mg PO BID #14 tablet 02/12/20 Rodrick/Polymyx B Sulf/Dexameth 2 drops LEFTEYE QID 4 Days #1 02/12/20 [Huofiz-Zxhlv-Jhazekiq Eye Drop] bottle Amox/Clav 875/125 [Augmentin] 1 each PO Q8H #30 tablet 05/22/20 HYDROcod/ACETAM 5/325 [[place] 5/325] 1 - 2 ea PO Q6H PRN #14 tablet 05/22/20 - Allergies Allergies/Adverse Reactions: Allergies Allergy/AdvReac Type Severity Reaction Status Date / Time povidone-iodine Allergy Intermediate Hives Verified 04/02/22 08:56 [From Betadine] soap * [From Betadine] Allergy Intermediate Hives Verified 04/02/22 08:56 Sulfa (Sulfonamide Allergy Intermediate Hives Verified 04/02/22 08:56 Antibiotics) ciprofloxacin [From Cipro] AdvReac Rash Verified 04/02/22 08:56 metronidazole [From Flagyl] AdvReac Rash Verified 04/02/22 08:56 Flu vaccine Allergy Mild Rash Uncoded 04/02/22 08:56 - Social History Does the pt smoke?: No Smoking Status: Never smoker Does the pt drink ETOH?: No Does the pt have substance abuse?: No - Immunizations Immunizations are current?: Yes Immunizations: TDAP >10years/unknown - POLST Patient has POLST: No PD ED PE NORMAL - General General: Alert and oriented X 3, No acute distress, Well developed/nourished - HEENT HEENT: Atraumatic, Moist mucous membranes - Neck Neck: Supple, no meningeal sign - Cardiac Cardiac: RRR, Strong equal pulses - Respiratory Respiratory: No respiratory distress, Clear bilaterally - Abdomen Abdomen: Soft, Non tender - Derm Derm: Warm and dry - Extremities Extremities: No calf tenderness / cord, Other (Yellow bruising to left anterior lower leg and ankle; Some areas of darker bruising to the goncalves; No fluctuance or erythema, no tenderness over bilateral malleoli or more distally to the foot; Normal range of motion at left knee; Compartments of the extremity are soft, pedal pulses intact) Results - Vitals Vitals: Vital Signs - 24 hr 04/02/22 08:53 Temperature 36.6 C Heart Rate 66 Respiratory 16 Rate Blood Pressure 139/55 H O2 Saturation 97 Oxygen O2 Source Room air PD MEDICAL DECISION MAKING - ED course Complexity details: reviewed results, re-evaluated patient ED course: Patient with bruising and swelling to the left lower leg after recent trauma. She is ambulatory at her baseline. X-rays of the left tib-fib and ankle were obtained. There were no signs of fracture or dislocation. There was specific attention to exam of bilateral malleoli as there was concerns for possible avulsion fragments.She has no tenderness to these areas. Discussed continuing supportive care as well as follow-up with her primary care doctor. She has an appointment tomorrow for other reasons. She is advised on concerning symptoms to return for. Departure - Departure Disposition: 01 Home, Self Care Clinical Impression: Contusion of left lower leg, initial encounter Condition: Stable Instructions: ED Contusion Lower Ext Comments: Your x-rays do not show a broken or out of place bone. You likely have continued bruising as you are on a blood thinner. Please continue with ice, elevation and rest as much as possible. Please keep your follow-up appointment with your doctor tomorrow. Discharge Date/Time: 04/02/22 10:23
== END 2022-04-02 10:23 | disposition home or self-care (01) ==
LOC: ED 08:45
DX: S80.12XA Contusion of left lower leg, initial encounter (principal); W18.49XA Other slipping, tripping and stumbling without falling, initial encounter; W22.09XA Striking against other stationary object, initial encounter; Z79.01 Long term (current) use of anticoagulants
CPT/HCPCS: 99282; 99283

== ENCOUNTER 2023-06-07 04:04 | Outpatient (CLI) | payer MEDICARE, OTHER | END 2023-06-07 23:59 | disposition critical access hospital (66) | LOC: EMS 04:04 | DX: I48.91 Unspecified atrial fibrillation (principal); R51.9 Headache, unspecified; R07.89 Other chest pain; R00.2 Palpitations; R53.1 Weakness; R42 Dizziness and giddiness | CPT/HCPCS: A0425; A0427 ==

== ENCOUNTER 2023-06-07 04:09 | Emergency (ER) | payer MEDICARE, OTHER ==
--- NOTE | 2023-06-07 04:30 | ED Physician Documentation ---
PD HPI CHEST PAIN - Stated complaint Stated Complaint: CP, WEAKNESS, HEADACHE, AFIB - Chief complaint Chief Complaint: Cardiac - History obtained from History obtained from: Patient, EMS - Additional information Additional information: 73-year-old female with history of atrial fibrillation on flecainide and Xarelto presents by EMS from home for headache, chest tightness, shortness of breath. Patient states that headache woke her up from sleep and she noticed chest tightness and felt like her heart was racing. Patient found to be in atrial fibrillation with RVR. Patient states she has had viral symptoms for the last several days prior to symptom onset. She reports she has been compliant with her Xarelto. She says she does not believe she has had an episode of A-fib in several years. Followed by Dr. Beck of cardiology at [facility] Review of Systems Constitutional: denies: Fever, Chills Cardiac: reports: Chest pain / pressure, Palpitations. denies: Calf pain Respiratory: reports: Dyspnea. denies: Cough, Wheezing GI: denies: Abdominal Pain, Nausea, Vomiting, Constipation, Diarrhea Neurologic: reports: Headache. 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: Tubal ligation, 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 - Present Medications Home Medications: Ambulatory Orders Medication Instructions Recorded Confirmed Ipratropium/Albuterol [Combivent 1 puffs IH QID PRN 04/11/15 06/07/23 Respimat] Metoprolol Tartrate 25 mg PO BID 03/13/18 06/07/23 Rivaroxaban [Xarelto] 20 mg PO QDDINNER 03/13/18 06/07/23 Albuterol 2.5 mg INH Q4H PRN #30 neb 02/07/19 06/07/23 Flecainide Acetate 50 mg PO DAILY 06/07/23 06/07/23 Lisinopril [Zestril] 10 mg PO DAILY 06/07/23 06/07/23 hydroCHLOROthiazide [Hydrodiuril] 25 mg PO ONCE 06/07/23 06/07/23 - Allergies Allergies/Adverse Reactions: Allergies Allergy/AdvReac Type Severity Reaction Status Date / Time povidone-iodine Allergy Intermediate Hives Verified 06/07/23 04:26 [From Betadine] soap * [From Betadine] Allergy Intermediate Hives Verified 06/07/23 04:26 Sulfa (Sulfonamide Allergy Intermediate Hives Verified 06/07/23 04:26 Antibiotics) ciprofloxacin [From Cipro] AdvReac Rash Verified 06/07/23 04:26 metronidazole [From Flagyl] AdvReac Rash Verified 06/07/23 04:26 Flu vaccine Allergy Mild Rash Uncoded 06/07/23 04:26 - Social History Does the pt smoke?: No Smoking Status: Never smoker Does the pt drink ETOH?: No Does the pt have substance abuse?: No - Immunizations Immunizations are current?: Yes Immunizations: TDAP >10years/unknown - POLST Patient has POLST: No PD ED PE NORMAL - Vitals Vital signs reviewed: Yes - General General: Alert and oriented X 3, No acute distress - HEENT HEENT: Atraumatic - Cardiac Cardiac: Other (Tachycardia, irregularly irregular) - Respiratory Respiratory: No respiratory distress - Abdomen Abdomen: Soft, Non tender, Non distended - Derm Derm: Normal color, Warm and dry, No rash - Extremities Extremities: No deformity, No tenderness to palpate, Normal ROM s pain, No edema - Neuro Neuro: Alert and oriented X 3, dairy 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 Relevant findings are: Rate: Rate (enter#) (152) Rhythm: Atrial fibrillation [place]: Normal - Labs Labs: Laboratory Tests 06/07/23 06/07/23 06/07/23 04:36 04:36 04:36 WBC 6.2 RBC 5.35 Hgb 15.4 Hct 46.3 MCV 86.5 MCH 28.8 MCHC 33.3 RDW 14.1 Plt Count 168 MPV 9.7 Neut # (Auto) 1.7 Lymph # (Auto) 3.7 H [place] # (Auto) 0.6 Eos # (Auto) 0.1 Baso # (Auto) 0.0 Absolute Nucleated RBC 0.00 Nucleated RBC % 0.0 PT 19.8 H INR 1.9 H Sodium 138 Potassium 3.3 L Chloride 100 L Carbon Dioxide 26 Anion Gap 12.0 BUN 14 Creatinine 0.8 Estimated GFR (MDRD) 70 L Glucose 121 H Calcium 10.0 Magnesium 1.5 L Total Bilirubin 0.4 AST 28 ALT 28 Alkaline Phosphatase 33 L Troponin I High Sens B-Natriuretic Peptide Total Protein 7.2 Albumin 4.1 Globulin 3.1 Albumin/Globulin Ratio 1.3 Nasal Adenovirus (PCR) Nasal B. parapertussis DNA (PCR) Nasal Coronavir 229E PCR Nasal Coronavir HKU1 PCR Nasal Coronavir NL63 PCR Nasal Coronavir OC43 PCR Nasal Enterovir/Rhinovir PCR Nasal Influ A H1 2009 PCR Nasal Influenza B PCR Nasal Influenza A PCR Nasal Parainfluen 1 PCR Nasal Parainfluen 2 PCR Nasal Parainfluen 3 PCR Nasal Parainfluen 4 PCR Nasal RSV (PCR) Nasal B.pertussis DNA PCR Nasal C.pneumoniae (PCR) Avi Human Metapneumo PCR Nasal M.pneumoniae (PCR) Nasal SARS-CoV-2 (PCR) 06/07/23 06/07/23 06/07/23 04:36 04:36 04:36 WBC RBC Hgb Hct MCV MCH MCHC RDW Plt Count MPV Neut # (Auto) Lymph # (Auto) [place] # (Auto) Eos # (Auto) Baso # (Auto) Absolute Nucleated RBC Nucleated RBC % PT INR Sodium Potassium Chloride Carbon Dioxide Anion Gap BUN Creatinine Estimated GFR (MDRD) Glucose Calcium Magnesium Total Bilirubin AST ALT Alkaline Phosphatase Troponin I High Sens 177.1 H* B-Natriuretic Peptide 24 Total Protein Albumin Globulin Albumin/Globulin Ratio Nasal Adenovirus (PCR) NOT DETECTED Nasal B. parapertussis DNA (PCR) NOT DETECTED Nasal Coronavir 229E PCR NOT DETECTED Nasal Coronavir HKU1 PCR NOT DETECTED Nasal Coronavir NL63 PCR NOT DETECTED Nasal Coronavir OC43 PCR NOT DETECTED Nasal Enterovir/Rhinovir PCR NOT DETECTED Nasal Influ A H1 2008 PCR DETECTED A Nasal Influenza B PCR NOT DETECTED Nasal Influenza A PCR NOT DETECTED Nasal Parainfluen 1 PCR NOT DETECTED Nasal Parainfluen 2 PCR NOT DETECTED Nasal Parainfluen 3 PCR NOT DETECTED Nasal Parainfluen 4 PCR NOT DETECTED Nasal RSV (PCR) NOT DETECTED Nasal B.pertussis DNA PCR NOT DETECTED Nasal C.pneumoniae (PCR) NOT DETECTED Avi Human Metapneumo PCR NOT DETECTED Nasal M.pneumoniae (PCR) NOT DETECTED Nasal SARS-CoV-2 (PCR) NOT DETECTED Procedures - Procedural sedation Sedation prep: Informed consent, Time out completed, Last meal, PE performed, ASA 3 - severe disease Sedation Medications: propofol Mallampati classification: III Patient status during sedation: Unresponsive, Vitals remained stable, Recovered uneventfully, Needed resp assistance Sedation recovery: Recovered uneventfully, Back to baseline Time in sedation (Minutes): 15 - Cardioversion - Major Attempt 1 Time of attempt: 05:10 Indication: Tachyarrhythmia Risks, benefits, alternatives explained to: Pt Prep: IV, O2, case monitor, Pulse ox, Airway equip CS via: Pads, AP approach Sync: Monophasic, 150j Post cardioversion rhythm: NSR Complications: Other (none) Performed by: ED MD Medical Decision Making - ED course Complexity details: reviewed old records, reviewed results, re-evaluated patient, considered differential, d/w patient ED course: Nontoxic patient presenting for headache with chest tightness and shortness of breath, found to be in A-fib with RVR on arrival. Patient is on flecainide, ideally should be in sinus rhythm. With chest tightness plan to electrically cardiovert. Risks and benefits explained with patient at bedside. She is in agreement. After single cardioversion attempt patient in normal sinus rhythm, blood pressure stable. Potassium 3.3, magnesium 1.5. Patient has remained in sinus rhythm, hemodynamically stable, states she is feeling much better since her cardioversion. Troponin is elevated at 177, however repeat EKG after cardioversion shows normal sinus rhythm without any ischemic findings. Case discussed with Dr. Schilling, on-call cardiology, who stated that these elevations in troponin can be seen following cardioversion and as long as EKG is normal sinus rhythm without ischemia and patient has no chest pain, then patient can be discharged with close follow-up. Recommended increasing flecainide from 50 mg twice daily to 75 mg in the morning and 50 mg at night with EKG check in 3 to 5 days to check QTc and QRS. Patient expressed understanding of medication changes and expected plan. She was given IV Magnesium for repletion. DIscharged home in stable condition. - Critical Care Time(min): 36 Time Includes: Direct patient care, Review records, Reassess patient, Document care, Coordinate care Data interpretation: Labs, Pulse ox, CXR, Prior EKG, Cardiac output Procedures included in critical care time: Peripheral IV Procedures excluded from critical care time: See progress note (cardioversion) Departure - Departure Disposition: 01 Home, Self Care Clinical Impression: Atrial fibrillation with RVR Condition: Stable Instructions: Atrial Fibrillation Dc Comments: Increase your flecainide to 1.5 tablets in the morning and 1 tablet in the evening. Keep your metoprolol dose the same. Your magnesium was slightly low today, I gave you IV replacement, but the cardiology recommends that you take a daily magnesium supplement for 1 week. You will need to have a repeat EKG in 3 to 5 days to check how the flecainide is affecting your heart rhythm. Forms: PCP List Discharge Date/Time: 06/07/23 08:19
[2023-06-07 04:43] LABS: BASOPHILS % (AUTO) 0.3 %; EOSINOPHILS # (AUTO) 0.1 10^3/uL (0.0-0.7); EOSINOPHILS % (AUTO) 1.5 %; HCT - HEMATOCRIT 46.3 % (37.0-47.0); HGB - HEMOGLOBIN 15.4 g/dL (12.0-16.0); LYMPHOCYTES # (AUTO) 3.7 10^3/uL (1.5-3.5); LYMPHOCYTES % (AUTO) 60.8 %; MEAN CORPUSCULAR HEMOGLOBIN 28.8 pg (27.0-31.0); MEAN CORPUSCULAR HGB CONC 33.3 g/dL (32.0-36.0); MEAN CORPUSCULAR VOLUME 86.5 fL (81.0-99.0); MEAN PLATELET VOLUME 9.7 fL (7.9-10.8); MONOCYTES # (AUTO) 0.6 10^3/uL (0.0-1.0); MONOCYTES % (AUTO) 9.9 %; NEUTROPHILS # (AUTO) 1.7 10^3/uL (1.5-6.6); NEUTROPHILS % (AUTO) 27.3 %; PLT - PLATELET COUNT 168 10^3/uL (130-450); RED BLOOD COUNT 5.35 10^6/uL (4.20-5.40); RED CELL DISTRIBUTION WIDTH 14.1 % (12.0-15.0); WHITE BLOOD COUNT 6.2 x10^3/uL (4.8-10.8)
[2023-06-07 04:50] LABS: INR 1.9 (0.8-1.2); PT - PROTHROMBIN TIME 19.8 secs (9.9-12.6)
[2023-06-07 05:02] LABS: ALBUMIN 4.1 g/dL (3.2-5.5); ALBUMIN/GLOBULIN RATIO 1.3 (1.0-2.2); BILIRUBIN,TOTAL 0.4 mg/dL (0.2-1.0); CREATININE 0.8 mg/dL (0.6-1.3); MAGNESIUM 1.5 mg/dL (1.7-2.3); POTASSIUM 3.3 mmol/L (3.5-4.5); TOTAL PROTEIN 7.2 g/dL (6.4-8.9)
[2023-06-07] MEDS: PROPOFOL 200 MG/20 ML VIAL IVP STA (05:11)
[2023-06-07] MEDS: SODIUM CHLORIDE 0.9% 1,000 ML IV STA (05:20)
[2023-06-07 06:00] LABS: CORONAVIRUS 229E-RESP PCR NOT DETECTED; CORONAVIRUS HKU1-RESP PCR NOT DETECTED; CORONAVIRUS NL63-RESP PCR NOT DETECTED; CORONAVIRUS OC43-RESP PCR NOT DETECTED; HUMAN METAPNEUMOVIRUS NOT DETECTED; INFLUENZA A H1 2009- RESP PCR DETECTED; INFLUENZA A- RESP PCR PANEL NOT DETECTED; RHINOVIRUS/ENTEROVIRUS NOT DETECTED; SARS-CoV-2 -RESP PCR PANEL NOT DETECTED
[2023-06-07 06:01] LABS: B. PARAPERTUSSIS- RESP PCR PAN NOT DETECTED; B. PERTUSSIS- RESP PCR PANEL NOT DETECTED; C. PNEUMONIAE- RESP PCR PANEL NOT DETECTED; INFLUENZA B - RESP PCR PANEL NOT DETECTED; M. PNEUMONIAE- RESP PCR PANEL NOT DETECTED; PARAINFLUENZA VIRUS 1 NOT DETECTED; PARAINFLUENZA VIRUS 2 NOT DETECTED; PARAINFLUENZA VIRUS 3 NOT DETECTED; PARAINFLUENZA VIRUS 4 NOT DETECTED; RSV- RESP PCR PANEL NOT DETECTED
[2023-06-07] MEDS: MAGNESIUM SULFATE 2 GRAM 1 GM/25 ML BAG IV SCH (07:06)
[2023-06-07] MEDS: POTASSIUM CHLORIDE 20 MEQ TABLET PO STA (07:06)
[2023-06-07] MEDS: diphenhydrAMINE INJ 50 MG/ML VIAL IVP STA (07:06)
[2023-06-07] MEDS: METOCLOPRAMIDE 10 MG/2 ML VIAL IVP STA (07:17)
[2023-06-07] MEDS: MAGNESIUM SULFATE 1 GM/2 ML VIAL IVP STA (07:20)
--- NOTE | 2023-06-07 07:25 | CT Report ---
PROCEDURE: Head WO INDICATIONS: MEREDITH/NEW PATTERN TECHNIQUE: Noncontrast 4.5 mm thick angled axial sections acquired from the foramen magnum to the vertex. For r adiation dose reduction, the following was used: automated exposure control, adjustment of mA and/or kV according to patient size. COMPARISON: None. FINDINGS: Image quality: Excellent. CSF spaces: Basal cisterns are patent. No extra-axial fluid collections. Ventricles are normal in size and shape. Brain: No midline shift. No intracranial masses or hemorrhage. Cerebral volume loss and periventric ular white matter chronic small vessel ischemic changes. Nguyễn-white matter interface is normal. Skull and face: Calvarium and visualized facial bones are intact, without suspicious lesions. Sinuses: There is a large polyp or mucous retention cyst in the right maxillary sinus. Mild ethmoidal sinus mucosal thickening. Air-fluid levels in sphenoid sinuses bilaterally. Mastoids are clear. IMPRESSION: 1. No acute intracranial pathology. 2. Paranasal sinus disease. Findings are concordant with preliminary interpretation provided by [facility]. Reviewed by: Mark Anthony Ott MD on 06/07/2023 7:24 AM PST Approved by: Mark Anthony Ott MD on 06/07/2023 7:24 AM PST Station ID: [id number]
--- NOTE | 2023-06-07 07:27 | XRAY Report ---
PROCEDURE: Chest 1V INDICATIONS: chest pain, dyspnea TECHNIQUE: One view of the chest was acquired. COMPARISON: None. FINDINGS: Surgical changes and devices: None. Lungs and pleura: No pleural effusions or pneumothorax. Lungs are clear. Mediastinum: Mediastinal contours appear normal. Heart size is normal. Bones and chest wall: No suspicious bony lesions. Overlying soft tissues appear unremarkable. IMPRESSION: No acute cardiopulmonary process. Findings are concordant with preliminary interpretation provided by [facility]. Reviewed by: Mark Anthony Ott MD on 06/07/2023 7:25 AM PST Approved by: Mark Anthony Ott MD on 06/07/2023 7:25 AM PST Station ID: [id number]
[2023-06-07 08:21] VITALS: BP 122/56; O2SAT 97
== END 2023-06-07 08:19 | disposition home or self-care (01) ==
LOC: EDUNIT# → ED 04:09
DX: I48.20 Chronic atrial fibrillation, unspecified (principal); Z79.01 Long term (current) use of anticoagulants; I10 Essential (primary) hypertension; J45.909 Unspecified asthma, uncomplicated; Z87.442 Personal history of urinary calculi
CPT/HCPCS: 36415; 70450; 71045; 80053; 83735; 83880; 84484; 85025; 85610; 87633; 92960; 93005; 96361; 96365; 96375; 99152; 99284; 99291; A9270; J1200; J2765